=== PATIENT | female | born 1970 | race Caucasian/White ===

== ENCOUNTER 2017-08-03 19:57 | Emergency (ER) | payer OTHER ==
[~2017-08-03] VITALS: Ht 144.7 cm; Wt 88.0 kg
[~2017-08-03 19:57] MED LIST: ALBUTEROL0.09 MG/A2 IH; AMITIZA24 MCG PO; ASPIRIN81 M1 PO; AZO CRANBERRY250 MG PO; B12,B-12,B 12500 MC1 PO; CARAFATE1 G1 PO; CIPRO250 MG PO; CIPRO500 MG PO; DIFLUCAN150 MG PO; FEOSOL325 MG PO; FLAGYL500 MG PO; FLEXERIL10 MG PO; LEVOFLOXACIN500 MG PO; LISINOPRIL10 MG PO; MACROBID100 M1 PO; METOCLOPRAMIDE10 MG PO; PERCOCET 325 MG1 TA2 PO; PHENERGAN25 M1 PO; PRILOSEC20 MG PO; PRILOSEC40 M1 PO; PROBIOTIC250 MG PO; PYRIDIUM200 M1 PO; ROBITUSSIN DM 105 ML PO; VIBRAMYCIN100 MG PO; VISTARIL50 MG PO; ZOFRAN ODT4 MG PO
[2017-08-03 20:05] VITALS: BP 145/80
[2017-08-03 20:24] LABS: BILIRUBIN NEGATIVE (NEGATIVE); BLOOD 2+ (NEGATIVE); CLARITY SL CLOUDY (CLEAR); COLOR YELLOW (YELLOW); GLUCOSE NEGATIVE (NEGATIVE); KETONE NEGATIVE (NEGATIVE); LEUKO ESTERASE 3+ (NEGATIVE); NITRITE NEGATIVE (NEGATIVE); PH 5.5 (5.0-9.0); SPECIFIC GRAVITY <= 1.005 (1.005-1.030); UROBILINOGEN 0.2 E.U./dl (0.2-1.0)
[2017-08-03 20:31] LABS: BACTERIA 2+; EPITHELIAL CELLS 15-20; WBC 51-100 wbc/hpf (0-5)
[2017-08-03 20:36] LABS: BASO % 0.3 % (0.0-1.0); EOS # 0.2 10*3/uL (0.0-0.4); EOS % 1.5 % (1.0-4.0); HEMATOCRIT 42.1 % (37.0-47.0); HEMOGLOBIN 14.1 g/dl (12.0-16.0); LYMPH % 16.3 % (27.0-41.0); MEAN CELL VOLUME 84.4 fl (81.0-99.0); MEAN CORPUSCULAR HGB 28.3 pg (27.0-31.0); MEAN CORPUSCULAR HGB CONC 33.5 g/dl (33.0-37.0); MEAN PLATELET VOLUME 9.2 fl (9.6-12.3); MONO # 0.7 10*3/uL (0.1-1.0); MONO % 5.7 % (3.0-9.0); NEUT # 9.4 10*3/uL (2.3-7.9); NEUT % 75.9 % (47.0-73.0); PLATELET COUNT AUTOMATED 389 10*3/uL (130-400); RED BLOOD COUNT 4.99 10*6/uL (4.10-5.10); RED CELL DISTRI WIDTH 13.4 % (0-14.5); WHITE BLOOD COUNT 12.4 10*3/uL (4.8-10.8)
[2017-08-03 20:52] LABS: ALKALINE PHOSPHATASE 77 U/L (45-117); BUN 9 mg/dl (7-24); CHLORIDE 106 mmol/L (98-107); CREATININE 0.77 mg/dL (0.55-1.02); LIPASE 122 U/L (73-393); POTASSIUM 3.4 mmol/L (3.5-5.1); SGOT/AST 13 IU/L (3-35); SGPT/ALT 21 U/L (12-78); SODIUM 140 mmol/L (136-145); TOTAL PROTEIN 7.9 gm/dL (6.4-8.2)
[2017-08-03] MEDS ORDERED: BACTRIM DS PO (21:01)
== END 2017-08-03 21:10 | disposition home or self-care (01) ==
LOC: ED 19:57
PROVIDERS: Physician Assistant
DX: N30.01 Acute cystitis with hematuria (principal); K76.0 Fatty (change of) liver, not elsewhere classified; Z91.030 Bee allergy status; Z88.5 Allergy status to narcotic agent; Z88.0 Allergy status to penicillin; Z88.8 Allergy status to other drugs, medicaments and biological substances; Z91.018 Allergy to other foods

== ENCOUNTER 2017-08-10 11:02 | Inpatient (IN) | payer OTHER ==
[~2017-08-10] VITALS: Ht 144.7 cm; Wt 85.3 kg
--- NOTE | ~2017-08-10 | CON ---
[place], [place] REPORT OF CONSULTATION NAME: VIDA ROSALES [facility] #: [id number] UNIT #: [id number] ROOM: 503 DOCTOR: NEO SCHULER MDDELOITPRESLEY BIRTHDATE: [birth year] DOS: GASTROENDOSCOPIC REPORT CHIEF COMPLAINT: This is a 46-year-old patient who has presented with left lower quadrant pain as well as subxiphoid atypical chest pain as well as dysphagia to solid food, post-paramedial emesis, undergoing investigation. The patient had a panel of urine studies done, greater than 50,000 moderate E. coli in her urine was identified. Her CBC, white blood cell was 6, H and H of 14 and 43, differential was within normal limits. Platelets, thrombocytosis of 410 was identified, this is reactive, and 2+ positivity in the urine was noticed. Comprehensive metabolic panel including liver function tests, electrolytes, BUN, creatinine all within normal limits. Normal gas pattern was identified on KUB of the abdomen. CT scan of the abdomen and pelvis, no acute process was noticed. Main organs including previously surgically removed gallbladder was noticed, unremarkable pancreas, adrenal gland and spleen were identified. Comprehensive metabolic panel reassessed. Labs reassessed. B12 and folate, B12 242, low and vitamin D low level, folic acid normal was noticed. Urine culture, again E. coli was noticed. Blood cultures were negative. PAST MEDICAL HISTORY: Associated with history of hypertension, gastroesophageal reflux, steatosis of the liver, otherwise obesity, diverticulitis, colonoscopy 5 years ago. PAST SURGICAL HISTORY: Cholecystectomy, tubal ligation, endometrial ablation. SOCIAL HISTORY: Nonsmoker, social alcohol consumer. FAMILY HISTORY: Noncontributory. ALLERGIES: PENICILLIN, CODEINE, BEE STING, TRAMADOL, VICODIN. MEDICATION AT HOME: Reviewed including iron supplementation and omeprazole. REVIEW OF SYSTEMS: HEENT: Denies double vision, blurred vision. RESPIRATORY: Nonspecific shortness of breath. CARDIOVASCULAR: Denies typical chest pain. DIGESTIVE SYSTEM: Symptomatology of GERD and dysphagia. Left lower quadrant pain. PHYSICAL EXAMINATION: VITAL SIGNS: Stable, obese patient. HEENT: Head normocephalic, nontraumatic. Mouth and buccal mucosa benign. NECK: Supple, no thyromegaly. CHEST: Symmetric anatomy, equal expansion. No wheeze, no rhonchi. HEART: Normal sinus rhythm, no gallop, no murmur. ABDOMEN: Obese, soft. No hepato-organomegaly. Left lower quadrant pain that is located in pelvic crest area anatomy. EXTREMITIES: No cyanosis, no pedal edema. [place], [place] REPORT OF CONSULTATION NAME: VIDA ROSALES UNIT #: [id number] ROOM: [facility] DOCTOR: MELY SCHULER MD BIRTHDATE: [birth year] NEUROLOGIC: Alert, oriented to time, place, person. Sensory, motor intact. Cranial nerves 2-12 intact. LABORATORY DATA: Reviewed. Records reviewed. IMPRESSION: Left lower quadrant pain, possible subclinical diverticulitis, urinary tract infection with E. coli less than 50,000, dysphagia, ruling out esophageal stricture, hiatal hernia. OTHER ADJUNCTIVE DIAGNOSES: As outlined in the paragraph of past medical and surgical history. PLAN AND DISCUSSION: We are going to proceed with panendoscopy. Thank you very much indeed. MELY SCHULER MD CM:CONSTR:REPORT OF CONSULTATION 1103 08/16/17 0444 interface
--- NOTE | ~2017-08-10 | O ---
[place], [place] OPERATIVE NOTE NAME: VIDA ROSALES UNIT #: [id number] ROOM: 503 DOCTOR: MELY SCHULER MD BIRTHDATE: [birth year] DOS: GASTRO-ENDOSCOPIC REPORT INDICATION: The patient has presented with dysphagia, epigastric distress and some shortness of breath and left lower quadrant abdominal pain. The patient is investigation for UTI. Meanwhile, she has been suffering from dysphagia. We have been asked for assessment of the patient in this regard. PROCEDURE: Today's procedure part of investigation is panendoscopy, plus biopsy, plus esophageal balloon dilation to size 20. PREMEDICATION: Versed and Diprivan. SCOPE: Olympus forward-viewing gastroscope Q10 video. REPORT: After putting the patient in the left lateral position and after application of lubricant to the scope, the scope was introduced. Thereafter, under direct visualization, I advanced through the length of esophagus without difficulty. Gastric pouch was entered. Antral erosions were noticed. Antral biopsy obtained. Duodenal bulb, second and third part within normal limits. The patient was gradually extubated after GI reflection of the scope and at this stage a balloon size 20 was introduced into the gastric pouch and orally extracted. Highest resistance in cervical esophagus was the place that she is complaining about postprandial emesis periodically. The patient extubated, tolerated the procedure well. IMPRESSION: Upper esophageal stricture, which is benign, status post balloon dilation to size 20, gastritis, antral erosions. PLAN AND DISCUSSION: We are going to keep this patient on Protonix 40 mg daily, dietary modifications, avoiding fatty food in excess and antireflux with elevation of the head of the bed 6 inches all time. Gaviscon as antacid of choice. We will try 2.5 mg metoclopramide prokinetic on her to improve her gastric motility and clinical reassessment. DIFFERENTIAL DIAGNOSES: Hiatal hernia, antral erosions, esophageal stricture, status post balloon dilation, status post antral biopsy. [place], [place] OPERATIVE NOTE NAME: VIDA ROSALES UNIT #: [id number] ROOM: 503 DOCTOR: MELY SCHULER MD BIRTHDATE: [birth year] MELY SCHULER MD CM:OPRECORD:OPERATIVE NOTE [id number] MELY SCHULER MD 08/16/17 0445 interface
[~2017-08-10 11:02] MED LIST changes: +BACTRIM DS PO
[2017-08-10 11:06] VITALS: BP 132/74
[2017-08-10 11:31] LABS: BASO % 0.5 % (0.0-1.0); EOS # 0.1 10*3/uL (0.0-0.4); EOS % 1.8 % (1.0-4.0); HEMATOCRIT 43.2 % (37.0-47.0); HEMOGLOBIN 14.1 g/dl (12.0-16.0); LYMPH # 1.7 10*3/uL (1.3-4.4); LYMPH % 26.9 % (27.0-41.0); MEAN CELL VOLUME 85.2 fl (81.0-99.0); MEAN CORPUSCULAR HGB 27.8 pg (27.0-31.0); MEAN CORPUSCULAR HGB CONC 32.6 g/dl (33.0-37.0); MONO # 0.4 10*3/uL (0.1-1.0); MONO % 5.8 % (3.0-9.0); NEUT # 4.1 10*3/uL (2.3-7.9); NEUT % 64.7 % (47.0-73.0); PLATELET COUNT AUTOMATED 410 10*3/uL (130-400); RED BLOOD COUNT 5.07 10*6/uL (4.10-5.10); RED CELL DISTRI WIDTH 13.2 % (0-14.5); WHITE BLOOD COUNT 6.3 10*3/uL (4.8-10.8)
[2017-08-10 11:43] LABS: BILIRUBIN NEGATIVE (NEGATIVE); BLOOD 2+ (NEGATIVE); CLARITY CLEAR (CLEAR); COLOR YELLOW (YELLOW); GLUCOSE NEGATIVE (NEGATIVE); KETONE NEGATIVE (NEGATIVE); LEUKO ESTERASE 1+ (NEGATIVE); NITRITE NEGATIVE (NEGATIVE); PH 5.5 (5.0-9.0); SPECIFIC GRAVITY 1.025 (1.005-1.030); UROBILINOGEN 0.2 E.U./dl (0.2-1.0)
[2017-08-10 11:52] LABS: BACTERIA TRACE
[2017-08-10 11:53] LABS: ALBUMIN 4.1 gm/dl (3.1-4.5); ALKALINE PHOSPHATASE 68 U/L (45-117); BUN 13 mg/dl (7-24); CHLORIDE 106 mmol/L (98-107); CREATININE 0.98 mg/dL (0.55-1.02); LIPASE 120 U/L (73-393); SGOT/AST 15 IU/L (3-35); SGPT/ALT 23 U/L (12-78); SODIUM 139 mmol/L (136-145); TOTAL PROTEIN 7.9 gm/dL (6.4-8.2)
[2017-08-10 12:00] VITALS: BP 94/50
--- NOTE | 2017-08-10 12:56 | NUR ---
PT GIVEN ICE CHIPS. PT STATES "I DONT LIKE HOW THIS M EDICINE MAKES ME FEEL" PULSE OX 100% ON RA. SKIN PINK WARM , AND DRY. PT STATES SHE FEELS A LITTLE "WOOZY" SIDE RAILS PUT UP AND SPOUSE AT BEDSIDE.
--- NOTE | 2017-08-10 13:33 | NUR ---
PT IS FEELING BETTER. NO NAUSEA OR DIZZINESS.
[2017-08-10 14:00] VITALS: BP 128/76
--- NOTE | 2017-08-10 14:20 | NUR ---
PT AWARE OF ADMITTANCE AND WHY.
[2017-08-10 16:00] VITALS: BP 94/50
--- NOTE | 2017-08-10 16:00 | NUR ---
Time: 1599 A 46 year old FEMALE admitted to 5E under services of VIANEY DANIELSON DO. Pt. arrived via bed from ER. Chief complaint: UTI WITH FAILURE OF OUTPT TREATMENT.. ZHENG SINCLAIR
[2017-08-10 20:00] VITALS: BP 115/40
--- NOTE | 2017-08-10 20:21 | NUR ---
PRN TYLENOL GIVEN FOR LLQ PAIN RATED 7.5/10. WILL MONITOR. C/O INSOMNIA CAUSED BY ABDOMINAL PAIN. STATES NO BOWEL MOVEMENT FOR A WEEK EXCEPT FOR A SMALL AMOUNT IN ER. STATES BOWEL WAS BLACK IN COLOR. C/O PAIN WITH URINATION.
[2017-08-11] VITALS: BP 133/67
--- NOTE | 2017-08-11 01:36 | NUR ---
Complaining of pain on L side with inability to lie on that side. Voices complaints of pain and burning with urination. States only wants Tylenol or Ibuprophen for pain. Requested and medicated with Restoril at 0029 for complaints of insomnia. Will monitor effectiveness.
--- NOTE | 2017-08-11 02:52 | NUR ---
Restoril effective, resting quietly in bed with eyes closed. Resp easy and regular. Will continue to monitor.
[2017-08-11 04:00] VITALS: BP 109/43
[2017-08-11 06:07] LABS: BASO % 0.5 % (0.0-1.0); EOS # 0.2 10*3/uL (0.0-0.4); HEMATOCRIT 37.5 % (37.0-47.0); HEMOGLOBIN 12.5 g/dl (12.0-16.0); LYMPH # 2.1 10*3/uL (1.3-4.4); LYMPH % 33.6 % (27.0-41.0); MEAN CELL VOLUME 86.8 fl (81.0-99.0); MEAN CORPUSCULAR HGB 28.9 pg (27.0-31.0); MEAN CORPUSCULAR HGB CONC 33.3 g/dl (33.0-37.0); MEAN PLATELET VOLUME 8.9 fl (9.6-12.3); MONO # 0.4 10*3/uL (0.1-1.0); MONO % 6.9 % (3.0-9.0); NEUT # 3.5 10*3/uL (2.3-7.9); NEUT % 55.5 % (47.0-73.0); PLATELET COUNT AUTOMATED 312 10*3/uL (130-400); RED BLOOD COUNT 4.32 10*6/uL (4.10-5.10); RED CELL DISTRI WIDTH 13.2 % (0-14.5); WHITE BLOOD COUNT 6.4 10*3/uL (4.8-10.8)
[2017-08-11 06:38] LABS: ALBUMIN 3.4 gm/dl (3.1-4.5); ALKALINE PHOSPHATASE 54 U/L (45-117); BUN 8 mg/dl (7-24); CHLORIDE 108 mmol/L (98-107); CHOLESTEROL 177 mg/dL (<200); CREATININE 0.82 mg/dL (0.55-1.02); HDL CHOLESTEROL 41 mg/dl (40-60); LDL CHOLESTEROL 104 mg/dL (9-159); PHOSPHOROUS 2.9 mg/dL (2.5-4.9); POTASSIUM 3.5 mmol/L (3.5-5.1); SGOT/AST 9 IU/L (3-35); SGPT/ALT 18 U/L (12-78); SODIUM 140 mmol/L (136-145); TOTAL PROTEIN 6.4 gm/dL (6.4-8.2); TRIGLYCERIDES 158 mg/dl (<150); VLDL CHOLESTEROL 32 mg/dL (6-40)
[2017-08-11 07:41] LABS: VITAMIN D, 25-HYDROXY 19.5 ng/mL (30-100)
[2017-08-11 08:00] VITALS: BP 109/60
--- NOTE | 2017-08-11 08:03 | NUR ---
Requested and medicated with Dulcolax at 0639 for complaints of constipation, states no bowelmovement for 1 week. Requested and medicated with Tylenol for complaints of L sided pain rated an 8/10. Will continue to monitor.
--- NOTE | 2017-08-11 08:30 | NUR ---
Oxygen Plant Operator in to talk to patient. Patient states lives at HOME with HER . There are ALOT steps in the home. Physician: [facility] Pharmacy: [facility] Home health services: NONE Patient's level of ADLs: INDEPENDENT Patient has working utilities: YES DME: NONE Follow-up physician's appointment after d/c: WILL BE MADE PRIOR TO DC Does patient want to access PORTAL?: Discharge plan HOME. PAULA BRUCE
--- NOTE | 2017-08-11 09:48 | NUR ---
MEDICATED WITH ZOFRAN FOR C/O NAUSEA. WILL CONT TO MONITOR. CALL LIGHT IN REACH.
--- NOTE | 2017-08-11 10:48 | NUR ---
DANAE DE JESUS AT THIS TIME. WILL CONT TO MONITOR. CALL LIGHT IN REACH.
[2017-08-11 12:00] VITALS: BP 109/43
[2017-08-11 16:00] VITALS: BP 110/63
--- NOTE | 2017-08-11 18:44 | NUR ---
ZOFRAN GIVEN FOR VOMITING. SHE STATES SHE ATE SOLID FOOD AND EVERYTIME SHE DOES THAT SHE HAS AN EMESIS.
--- NOTE | 2017-08-11 18:53 | NUR ---
DR MUÑOZ NOTIFIED THAT PT STATED TO ME SHE HASN'T EATEN SOLID FOOD SINCE 07/25/17 BECAUSE SHE THROWS IT BACK UP. SHE STATES SHE HAS BEEN EATING CRACKERS AND LIQUIDS SINCE THEN. HE STATED HE WILL MAKE HER NPO AT MIDNIGHT AND WILL TALK TO THE TEAM ABOUT GETTING DR SCHULER ON BOARD TOMORROW FOR AN EGD.
--- NOTE | 2017-08-11 19:04 | NUR ---
PHYSICIAN WAS NOTIFIED OF DR. SCHULER CONSULT. RESPONSE OF NOTIFICATION WAS OK EGD TOMORROW, NPO AT MIDNIGHT, HOLD BLOOD THINNERS.. LEONID MARLEY
[2017-08-11 20:00] VITALS: BP 122/76
--- NOTE | 2017-08-11 22:08 | NUR ---
PATIENT MEDICATED WITH RESTORIL FOR COMPLAINTS OF INSOMNIA. WILL MONITOR FOR EFFECTIVENESS. CALL LIGHT IN REACH.
--- NOTE | 2017-08-11 22:14 | NUR ---
MEDICATED WITH TYLENOL FOR COMPLAINTS OF ABDOMINAL PAIN. WILL MONITOR FOR EFFECTIVENESS. CALL LIGHT IN REACH.
--- NOTE | 2017-08-11 23:31 | NUR ---
PRN RESTORIL AND TYLENOL EFFECTIVE AT THIS TIME. PATIENT RESTING IN BED WITH EYES CLOSED. NO SIGNS OR SYMPTOMS OF DISTRESS NOTED. WILL CONTINUE TO MONITOR. CALL LIGHT IN REACH.
[2017-08-12] VITALS (9 sets, daily range): BP systolic 96–138; BP diastolic 33–76
--- NOTE | 2017-08-12 05:53 | NUR ---
SURGICAL PACKET COMPLETED.
--- NOTE | 2017-08-12 07:45 | NUR ---
Shift chart check completed.
--- NOTE | 2017-08-12 09:00 | NUR ---
PT TO EGD VIA BED
--- NOTE | 2017-08-12 11:55 | NUR ---
RETURNED FROM EGD. PT STATES IV IN LEFT HAND "HURTING" NO INFILTRATION NOTED. PER PATIENT REQUEST WILL PLACE NEW IV AND REMOVE IV IN LEFT HAND
--- NOTE | 2017-08-12 12:14 | NUR ---
NEW IV PLACED IN LEFT AC #22. GOOD BLOOD RETURN, FLUSHED WITH NS. PT TOLERATED WELL. IV FLUIDS HOOKED BACK UP. IV IN LEFT HAND D/C- DRESSING APPLIED.
--- NOTE | 2017-08-12 12:14 | NUR ---
NEW IV STARTED IN LRGT AC #22 GOOD BLOOD RETURN, PT TOLERATED WELL. IV IN LEFT HAND D/C. UNSUCCESSFUL ATTEMPTS X1 IN RIGHT AC.
--- NOTE | 2017-08-12 12:17 | NUR ---
PT SLEEPING. IVFLUIDS STOPPED PER ORDER
--- NOTE | 2017-08-12 16:05 | NUR ---
Time: 1604 A 73 year old admitted to 5E under services of VIANEY DANIELSON DO. Pt. arrived via stretcher from ER. Chief complaint: SHORTNESS OF BREATH. JENN MARTINES
--- NOTE | 2017-08-12 18:12 | NUR ---
IV STARTED IN LEFT FA. TOLERATED WELL. GOOD BLOOD RETURN. RESPIRATORY AWARE OF ABG NEEDED - THEY STATED SHE JUST HAD A BREATHING TREATMENT SO THEY HAVE TO WAIT A FEW PRIOR TO DRAWING ABG.
--- NOTE | 2017-08-12 20:15 | NUR ---
PT C/O NAUSEA. ZOFRAN ADMINISTERED VIA IV AT THIS TIME. WILL MONITOR FOR EFFECTIVENESS. PT SITTING UP IN CHAIR, ASSESSMENT COMPLETE. NO OTHER ABNORMALITIES NOTED AT THIS TIME. ACTIVE BSX4. IV SITE PATENT, DRESSING DRY AND IN TACT. CALL LIGHT IN REACH.
--- NOTE | 2017-08-12 21:15 | NUR ---
DANAE EFFECTIVE. PT STATES SHE HAS NO NAUSEA AT THIS TIME. PT SITTING UP IN CHAIR AT THIS TIME. CALL LIGHT IN REACH.
--- NOTE | 2017-08-12 21:23 | NUR ---
24 HR chart check completed.
--- NOTE | 2017-08-12 21:51 | NUR ---
PT GIVEN TYLENOL AND RESTORIL FOR FLANK PAIN AND RESTLESSNESS. WILL MONITOR FOR EFFECTIVENESS. CALL LIGHT IN REACH.
--- NOTE | 2017-08-12 22:50 | NUR ---
TYLENOL AND VISTARIL EFFECTIVE PER PT. PT RESTING IN BED AT THIS TIME. CALL LIGHT IN REACH.
[2017-08-13] VITALS: BP 122/75
--- NOTE | 2017-08-13 02:25 | NUR ---
24 HOUR CHART CHECK COMPLETE
[2017-08-13 06:07] LABS: BASO % 0.4 % (0.0-1.0); EOS # 0.2 10*3/uL (0.0-0.4); EOS % 3.4 % (1.0-4.0); HEMATOCRIT 36.5 % (37.0-47.0); HEMOGLOBIN 11.8 g/dl (12.0-16.0); LYMPH # 2.3 10*3/uL (1.3-4.4); MEAN CELL VOLUME 86.3 fl (81.0-99.0); MEAN CORPUSCULAR HGB 27.9 pg (27.0-31.0); MEAN CORPUSCULAR HGB CONC 32.3 g/dl (33.0-37.0); MEAN PLATELET VOLUME 9.3 fl (9.6-12.3); MONO # 0.4 10*3/uL (0.1-1.0); MONO % 6.3 % (3.0-9.0); NEUT # 3.9 10*3/uL (2.3-7.9); NEUT % 56.6 % (47.0-73.0); PLATELET COUNT AUTOMATED 343 10*3/uL (130-400); RED BLOOD COUNT 4.23 10*6/uL (4.10-5.10); RED CELL DISTRI WIDTH 13.4 % (0-14.5); WHITE BLOOD COUNT 6.8 10*3/uL (4.8-10.8)
[2017-08-13 06:33] LABS: BUN 6 mg/dl (7-24); CHLORIDE 107 mmol/L (98-107); CREATININE 0.73 mg/dL (0.55-1.02); POTASSIUM 3.4 mmol/L (3.5-5.1); SODIUM 143 mmol/L (136-145)
[2017-08-13 08:00] VITALS: BP 109/56
[2017-08-13] MEDS ORDERED: Lioresal PO (11:37)
[2017-08-13] MEDS ORDERED: MACROBID100 M1 PO (11:37)
--- NOTE | 2017-08-13 12:41 | NUR ---
Discharge instructions reviewed with patient/family. Patient receptive and verbalizes understanding. Follow-up care arranged. Written instructions given to patient/family.HEPLOCK REMOVED. ALEXANDRIA VINCENT
== END 2017-08-13 12:41 | disposition home or self-care (01) | DRG 690 ==
LOC: EDSTATUS 11:02 → ED 11:03 → 5E 14:22 → EDHOLD 14:22 → 5E 14:27
PROVIDERS: Family Medicine; Internal Medicine; Physician Assistant; ADMIT Internal Medicine
PROC: 0DB68ZX Excision of Stomach, Via Natural or Artificial Opening Endoscopic, Diagnostic (ICD-10-PCS; principal; 2017-08-10)
PROC: 0D758ZZ Dilation of Esophagus, Via Natural or Artificial Opening Endoscopic (ICD-10-PCS; principal; 2017-08-10)
DX: N39.0 Urinary tract infection, site not specified (principal); K22.2 Esophageal obstruction; K57.92 Diverticulitis of intestine, part unspecified, without perforation or abscess without bleeding; B96.20 Unspecified Escherichia coli [E. coli] as the cause of diseases classified elsewhere; I10 Essential (primary) hypertension; K21.9 Gastro-esophageal reflux disease without esophagitis; K25.9 Gastric ulcer, unspecified as acute or chronic, without hemorrhage or perforation; K44.9 Diaphragmatic hernia without obstruction or gangrene; Z78.9 Other specified health status; R31.9 Hematuria, unspecified; K29.70 Gastritis, unspecified, without bleeding; Z98.51 Tubal ligation status; Z90.49 Acquired absence of other specified parts of digestive tract; Z82.49 Family history of ischemic heart disease and other diseases of the circulatory system; Z88.0 Allergy status to penicillin; Z88.6 Allergy status to analgesic agent; Z91.030 Bee allergy status; Z79.899 Other long term (current) drug therapy

== ENCOUNTER → 2017-08-17 | Outpatient (CLI) | payer OTHER ==
[~2017-08-17] MED LIST changes: +Lioresal PO
== END | disposition home or self-care (01) ==
LOC: RESCLI 07:51
DX: K59.00 Constipation, unspecified (principal); R30.0 Dysuria; E61.1 Iron deficiency; M25.512 Pain in left shoulder; K21.9 Gastro-esophageal reflux disease without esophagitis; K29.50 Unspecified chronic gastritis without bleeding; E53.8 Deficiency of other specified B group vitamins; E55.9 Vitamin D deficiency, unspecified; E66.01 Morbid (severe) obesity due to excess calories; Z88.0 Allergy status to penicillin; Z88.5 Allergy status to narcotic agent; Z88.1 Allergy status to other antibiotic agents; Z91.030 Bee allergy status

== ENCOUNTER → 2017-11-08 | Outpatient (CLI) | payer OTHER ==
[2017-11-08 15:29] LABS: BILIRUBIN NEGATIVE (NEGATIVE); BLOOD TRACE-INTACT (NEGATIVE); CLARITY CLEAR (CLEAR); COLOR YELLOW (YELLOW); GLUCOSE NEGATIVE (NEGATIVE); KETONE NEGATIVE (NEGATIVE); LEUKO ESTERASE NEGATIVE (NEGATIVE); NITRITE NEGATIVE (NEGATIVE); SPECIFIC GRAVITY <= 1.005 (1.005-1.030); UROBILINOGEN 0.2 E.U./dl (0.2-1.0)
[2017-11-08 15:47] LABS: WBC 0-2 wbc/hpf (0-5)
== END | disposition home or self-care (01) ==
LOC: RESCLI 04:02
PROVIDERS: Internal Medicine
DX: N39.0 Urinary tract infection, site not specified (principal)

== ENCOUNTER 2018-01-01 14:20 | Emergency (ER) | payer OTHER ==
[~2018-01-01] VITALS: Ht 144.7 cm; Wt 88.9 kg
[2018-01-01 14:25] VITALS: BP 146/85
[2018-01-01 14:57] LABS: BASO % 0.4 % (0.0-1.0); EOS % 1.1 % (1.0-4.0); HEMATOCRIT 42.3 % (37.0-47.0); HEMOGLOBIN 14.1 g/dl (12.0-16.0); LYMPH # 1.2 10*3/uL (1.3-4.4); LYMPH % 43.8 % (27.0-41.0); MEAN CELL VOLUME 84.8 fl (81.0-99.0); MEAN CORPUSCULAR HGB 28.3 pg (27.0-31.0); MEAN CORPUSCULAR HGB CONC 33.3 g/dl (33.0-37.0); MEAN PLATELET VOLUME 8.6 fl (9.6-12.3); MONO # 0.4 10*3/uL (0.1-1.0); MONO % 12.8 % (3.0-9.0); NEUT # 1.2 10*3/uL (2.3-7.9); NEUT % 41.5 % (47.0-73.0); PLATELET COUNT AUTOMATED 261 10*3/uL (130-400); RED BLOOD COUNT 4.99 10*6/uL (4.10-5.10); RED CELL DISTRI WIDTH 13.6 % (0-14.5); WHITE BLOOD COUNT 2.8 10*3/uL (4.8-10.8)
[2018-01-01 15:11] LABS: ALBUMIN 3.6 gm/dl (3.1-4.5); ALKALINE PHOSPHATASE 78 U/L (45-117); BUN 5 mg/dl (7-24); CHLORIDE 105 mmol/L (98-107); SGOT/AST 23 IU/L (3-35); SGPT/ALT 30 U/L (12-78); SODIUM 140 mmol/L (136-145); TOTAL PROTEIN 6.9 gm/dL (6.4-8.2)
[2018-01-01 16:25] LABS: BILIRUBIN NEGATIVE (NEGATIVE); BLOOD TRACE-INTACT (NEGATIVE); CLARITY SL CLOUDY (CLEAR); COLOR YELLOW (YELLOW); GLUCOSE NEGATIVE (NEGATIVE); KETONE NEGATIVE (NEGATIVE); LEUKO ESTERASE NEGATIVE (NEGATIVE); NITRITE NEGATIVE (NEGATIVE); SPECIFIC GRAVITY >= 1.030 (1.005-1.030); UROBILINOGEN 0.2 E.U./dl (0.2-1.0)
[2018-01-01 16:33] LABS: BACTERIA 1+; EPITHELIAL CELLS 51-100
[2018-01-01] MEDS ORDERED: K-TAB20 MEQ PO (17:36)
[2018-01-01] MEDS ORDERED: ZOFRAN ODT4 MG SL (17:36)
[2018-01-01] MEDS ORDERED: LEVAQUIN750 M1 PO (17:36)
== END 2018-01-01 17:39 | disposition home or self-care (01) ==
LOC: ED 14:20
PROVIDERS: Physician Assistant
DX: B34.9 Viral infection, unspecified (principal); N39.0 Urinary tract infection, site not specified; Z90.49 Acquired absence of other specified parts of digestive tract; Z88.5 Allergy status to narcotic agent; Z88.0 Allergy status to penicillin; Z91.030 Bee allergy status

== ENCOUNTER → 2018-02-14 | Outpatient (CLI) | payer OTHER ==
[~2018-02-14] MED LIST changes: +K-TAB20 MEQ PO; +LEVAQUIN750 M1 PO; +ZOFRAN ODT4 MG SL
== END | disposition home or self-care (01) ==
LOC: RESCLI 01:48
DX: K21.9 Gastro-esophageal reflux disease without esophagitis (principal); B37.3 Candidiasis of vulva and vagina; R30.0 Dysuria; N94.10 Unspecified dyspareunia; G43.019 Migraine without aura, intractable, without status migrainosus; F41.9 Anxiety disorder, unspecified; G47.00 Insomnia, unspecified; R04.0 Epistaxis; K59.00 Constipation, unspecified; E53.8 Deficiency of other specified B group vitamins; E55.9 Vitamin D deficiency, unspecified; E66.1 Drug-induced obesity; I10 Essential (primary) hypertension; Z90.49 Acquired absence of other specified parts of digestive tract

== ENCOUNTER → 2018-04-19 | Day surgery (SDC) | payer OTHER ==
[~2018-04-19] VITALS: Ht 144.7 cm; Wt 85.7 kg
[~2018-04-19] MED LIST changes: +AMITIZA8 MCG PO; +CYCLOBENZAPRINE10 MG PO
--- NOTE | ~2018-04-19 | O ---
[place], [place] OPERATIVE NOTE NAME: VIDA ROSALES UNIT #: [id number] [facility]: [facility] [birth year] DOS: 04/19/2018 GASTROENDOSCOPIC REPORT INDICATIONS: This is a 47-year-old patient who has presented with chief complaint of dyspepsia as well pain. The patient has been on Prilosec as well as constipation and abdominal pain, been on Amitiza as well. The patient has had CT scan that is pending. ALLERGIES: PENICILLIN, CODEINE, AND IODINE. FAMILY HISTORY: Noncontributory. PAST SURGICAL HISTORY: Tubal ligation, , cholecystectomy. PAST MEDICAL HISTORY: Abdominal pain, migraine cephalalgia, UTI, GERD. SOCIAL HISTORY: Nonsmoker, social alcohol consumer. PROCEDURE: Today's procedure part of investigation is panendoscopy and colonoscopy. PREMEDICATION: Versed and propofol. SCOPE: Olympus forward-viewing gastroscope Q10 video. REPORT: After putting the patient in left lateral position and application of lubricant to the scope, the scope was introduced. Thereafter, under direct visualization, advanced through the length of esophagus without difficulty. Gastric pouch was entered. Evidence of gastritis was seen. Antral biopsy obtained for H. pylori. Duodenal bulb, second and third part within normal limit. The scope was withdrawn along the lesser curvature. Air was suctioned out. The patient was extubated, tolerated the procedure well. IMPRESSION: Gastritis. PLAN AND DISCUSSION: We are going to continue with Prilosec and antireflux with elevation of the head of the bed 6 inch all time. Gaviscon p.r.n. Furthermore, we are going to proceed with colonoscopic evaluation for constipation ____ as well as abdominal pain. COLONOSCOPY INDICATIONS: The patient has presented with abdominal pain, and change of bowel habit. Today's procedure part of investigation is colonoscopy. PREMEDICATION: Propofol. [place], [place] OPERATIVE NOTE NAME: VIDA ROSALES UNIT #: [id number] ROOM: [facility] [birth year] SCOPE: Olympus folding colonoscope 10L video. REPORT: After putting the patient in left lateral position and application of lubricant to the scope, the scope was introduced. Thereafter, under direct visualization, advanced through the length of colon without difficulty. Evidence of diverticulosis of moderate degree was noticed. Base of cecum explored and ileocecal valve was defined. Appendiceal orifice was hidden in layers of retained stool. Air was suctioned out. The patient was extubated, tolerated the procedure well. IMPRESSION: Diverticulosis. PLAN AND DISCUSSION: Since Amitiza 24 mcg induced, diarrhea, multiple stool. We are continuing with Amitiza 8 mcg instead once a day. High fiber diet, low fat diet, and follow up routinely with you in office, visit with us p.r.n. CT scan result is pending. Thank you very much indeed for your kind referral. MELY SCHULER MD CM:OPRECORD:OPERATIVE NOTE 1201 [id number] MELY SCHULER MD 04/19/18 1355 interface
[2018-04-19 11:00] VITALS: BP 109/70
[2018-04-19 11:57] VITALS: BP 102/58
[2018-04-19 12:12] VITALS: BP 106/57
[2018-04-19 12:26] VITALS: BP 104/54
== END | disposition home or self-care (01) ==
LOC: SDC 04-13 12:30
DX: K57.30 Diverticulosis of large intestine without perforation or abscess without bleeding (principal); K29.50 Unspecified chronic gastritis without bleeding; G43.909 Migraine, unspecified, not intractable, without status migrainosus; K21.9 Gastro-esophageal reflux disease without esophagitis; J45.909 Unspecified asthma, uncomplicated; Z87.440 Personal history of urinary (tract) infections; Z90.49 Acquired absence of other specified parts of digestive tract; Z98.890 Other specified postprocedural states; Z98.51 Tubal ligation status; Z79.899 Other long term (current) drug therapy; Z88.0 Allergy status to penicillin; Z91.041 Radiographic dye allergy status; Z88.8 Allergy status to other drugs, medicaments and biological substances; Z80.9 Family history of malignant neoplasm, unspecified; Z82.49 Family history of ischemic heart disease and other diseases of the circulatory system

== ENCOUNTER → 2018-04-19 | Outpatient (CLI) | payer OTHER ==
[2018-04-19 10:10] LABS: ALBUMIN 3.9 gm/dl (3.1-4.5); ALKALINE PHOSPHATASE 69 U/L (45-117); BUN 12 mg/dl (7-24); CHLORIDE 105 mmol/L (98-107); CREATININE 0.88 mg/dL (0.55-1.02); POTASSIUM 3.6 mmol/L (3.5-5.1); SGOT/AST 17 IU/L (3-35); SGPT/ALT 27 U/L (12-78); SODIUM 140 mmol/L (136-145); TOTAL PROTEIN 7.2 gm/dL (6.4-8.2)
[2018-04-19 10:20] LABS: BASO % 0.6 % (0.0-1.0); EOS # 0.1 10*3/uL (0.0-0.4); EOS % 1.3 % (1.0-4.0); HEMATOCRIT 43.3 % (37.0-47.0); HEMOGLOBIN 13.9 g/dl (12.0-16.0); LYMPH # 1.7 10*3/uL (1.3-4.4); LYMPH % 25.3 % (27.0-41.0); MEAN CELL VOLUME 86.8 fl (81.0-99.0); MEAN CORPUSCULAR HGB 27.9 pg (27.0-31.0); MEAN CORPUSCULAR HGB CONC 32.1 g/dl (33.0-37.0); MEAN PLATELET VOLUME 8.9 fl (9.6-12.3); MONO # 0.4 10*3/uL (0.1-1.0); MONO % 6.2 % (3.0-9.0); NEUT # 4.5 10*3/uL (2.3-7.9); NEUT % 66.3 % (47.0-73.0); PLATELET COUNT AUTOMATED 406 10*3/uL (130-400); RED BLOOD COUNT 4.99 10*6/uL (4.10-5.10); RED CELL DISTRI WIDTH 13.2 % (0-14.5); WHITE BLOOD COUNT 6.8 10*3/uL (4.8-10.8)
[2018-04-19 10:32] LABS: ACT PARTIAL THROMBO TIME 25.1 SECONDS (20.8-31.5)
[2018-04-19 10:55] LABS: VITAMIN D, 25-HYDROXY 20.4 ng/mL (30-100)
== END | disposition home or self-care (01) ==
LOC: LAB 09:14
PROVIDERS: Internal Medicine
DX: Z00.00 Encounter for general adult medical examination without abnormal findings (principal)

== ENCOUNTER → 2018-09-18 | Outpatient (CLI) | payer OTHER | END | disposition home or self-care (01) | LOC: RAD 09-15 10:00 | DX: R13.10 Dysphagia, unspecified (principal); R22.1 Localized swelling, mass and lump, neck; K21.9 Gastro-esophageal reflux disease without esophagitis ==

== ENCOUNTER 2018-12-25 18:07 | Emergency (ER) | payer OTHER ==
[~2018-12-25] VITALS: Ht 144.7 cm; Wt 89.8 kg
[2018-12-25 18:08] VITALS: BP 129/64
== END 2018-12-25 21:02 | disposition home or self-care (01) ==
LOC: ED 18:07
DX: S60.022A Contusion of left index finger without damage to nail, initial encounter (principal); S60.032A Contusion of left middle finger without damage to nail, initial encounter; K21.9 Gastro-esophageal reflux disease without esophagitis; I10 Essential (primary) hypertension; Z79.899 Other long term (current) drug therapy; Z88.0 Allergy status to penicillin; Z91.030 Bee allergy status; Z88.6 Allergy status to analgesic agent; W22.03XA Walked into furniture, initial encounter; Y93.89 Activity, other specified; Y92.89 Other specified places as the place of occurrence of the external cause; Y99.8 Other external cause status

== ENCOUNTER → 2019-01-02 | Outpatient (CLI) | payer OTHER | END | disposition home or self-care (01) | LOC: MAMMO 14:25 | DX: Z12.31 Encounter for screening mammogram for malignant neoplasm of breast (principal) ==

== ENCOUNTER → 2019-02-14 | Outpatient (CLI) | payer OTHER ==
[2019-02-15 17:06] LABS: RUBEOLA AB IGG 096560 26.3 AU/mL (Immune >29.9)
== END | disposition home or self-care (01) ==
LOC: RESCLI 01:13
PROVIDERS: Student in an Organized Health Care Education/Training Program
DX: Z12.4 Encounter for screening for malignant neoplasm of cervix (principal); Z12.31 Encounter for screening mammogram for malignant neoplasm of breast; Z11.1 Encounter for screening for respiratory tuberculosis; Z02.89 Encounter for other administrative examinations; K21.9 Gastro-esophageal reflux disease without esophagitis; E55.9 Vitamin D deficiency, unspecified; E61.1 Iron deficiency; F41.9 Anxiety disorder, unspecified; E66.01 Morbid (severe) obesity due to excess calories; I10 Essential (primary) hypertension; Z87.19 Personal history of other diseases of the digestive system

== ENCOUNTER 2019-06-25 09:02 | Emergency (ER) | payer OTHER ==
[~2019-06-25] VITALS: Ht 144.7 cm; Wt 89.4 kg
[2019-06-25 09:03] VITALS: BP 106/59
== END 2019-06-25 12:10 | disposition home or self-care (01) ==
LOC: ED 09:02
DX: G43.909 Migraine, unspecified, not intractable, without status migrainosus (principal); Z88.0 Allergy status to penicillin; Z88.6 Allergy status to analgesic agent; Z79.899 Other long term (current) drug therapy; Z91.030 Bee allergy status

== ENCOUNTER 2019-08-31 20:56 | Inpatient (IN) | payer OTHER ==
[~2019-08-31] VITALS: Ht 149.9 cm; Wt 88.0 kg
--- NOTE | ~2019-08-31 | EKG ---
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
--- NOTE | ~2019-08-31 | EKG ---
[place], [place] ELECTROCARDIOGRAM REPORT NAME: VIDA ROSALES UNIT #: [id number] ROOM: 424 DOCTOR: MYCHAL DRAFT REPORT BIRTHDATE: [birth year] [facility] Test Date: 2019-09-01 Test Time: 04:26:10 Pat Name: VIDA ROSALES Department: Room: 424 1 Gender: F Trackmobile Operator: : 1970 Requested By: JACQUE MUÑOZ Order Number: [id number] Reading MD: Maude Pike Measurements Intervals [place] Rate: 95 P: 64 MS: 120 QRS: 32 QRSD: 75 T: 32 QT: 355 QTc: 447 Interpretive Statements Sinus rhythm Borderline T abnormalities, anterior leads Electronically Signed On 09-01-2019 11:34:55 PST by Maude Pike CM:EKGRPT:ELECTROCARDIOGRAM REPORT 0426 [id number] JACQUE JARRETT DRAFT REPORT JACQUE MUÑOZ DO
--- NOTE | ~2019-08-31 | EKG ---
[place], [place] ELECTROCARDIOGRAM REPORT NAME: VIDA ROSALES UNIT #: [id number] ROOM: 424 DOCTOR: MYCHAL DRAFT REPORT BIRTHDATE: [birth year] [facility] Test Date: 2019-09-01 Test Time: 02:06:58 Pat Name: VIDA ROSALES Department: Room: 424 1 Gender: F Netting Weaver: : 1970 Requested By: JACQUE MUÑOZ Order Number: [id number] Reading MD: Maude Pike Measurements Intervals [place] Rate: 109 P: 47 VA: 124 QRS: 15 QRSD: 79 T: 25 QT: 323 QTc: 436 Interpretive Statements Sinus tachycardia Borderline T abnormalities, anterior leads Electronically Signed On 09-01-2019 11:34:46 PST by Maude Pike CM:EKGRPT:ELECTROCARDIOGRAM REPORT 0206 [id number] JACQUE JARRETT DRAFT REPORT JACQUE MUÑOZ DO
[2019-08-31 21:02] VITALS: BP 133/71
[2019-08-31] MEDS ORDERED: DITROPAN XL5 MG PO (21:06)
[2019-08-31 21:34] VITALS: BP 155/74
[2019-08-31 21:34] LABS: HEMOGLOBIN 13.2 g/dl (12.0-16.0); MEAN CELL VOLUME 86.8 fl (81.0-99.0); MEAN CORPUSCULAR HGB 28.6 pg (27.0-31.0); MEAN PLATELET VOLUME 8.6 fl (9.6-12.3); PLATELET COUNT AUTOMATED 329 10*3/uL (130-400); RED BLOOD COUNT 4.61 10*6/uL (4.10-5.10); RED CELL DISTRI WIDTH 13.8 % (0-14.5); WHITE BLOOD COUNT 8.1 10*3/uL (4.8-10.8)
[2019-08-31 21:44] LABS: INTERNATIONAL NORM RATIO 0.9 (2.0-3.5)
[2019-08-31 21:45] LABS: BILIRUBIN NEGATIVE (NEGATIVE); BLOOD 2+ (NEGATIVE); CLARITY CLOUDY (CLEAR); COLOR YELLOW (YELLOW); GLUCOSE NEGATIVE (NEGATIVE); KETONE NEGATIVE (NEGATIVE); LEUKO ESTERASE 3+ (NEGATIVE); NITRITE NEGATIVE (NEGATIVE); SPECIFIC GRAVITY 1.015 (1.005-1.030); UROBILINOGEN 0.2 E.U./dl (0.2-1.0)
[2019-08-31 21:52] LABS: ALBUMIN 3.3 gm/dl (3.1-4.5); ALKALINE PHOSPHATASE 83 U/L (45-117); BUN 9 mg/dl (7-24); CHLORIDE 107 mmol/L (98-107); CREATININE 0.88 mg/dL (0.55-1.02); LIPASE 77 U/L (73-393); POTASSIUM 3.5 mmol/L (3.5-5.1); SGOT/AST 23 IU/L (3-35); SGPT/ALT 39 U/L (12-78); SODIUM 139 mmol/L (136-145); TOTAL PROTEIN 6.9 gm/dL (6.4-8.2)
[2019-08-31 21:53] LABS: TROPONIN I < 0.015 ng/ml (<0.045)
[2019-08-31 21:55] LABS: TOTAL CELLS COUNTED 100 #CELLS
[2019-08-31 21:56] LABS: PLATELET SUFFICIENCY NORMAL (NORMAL)
[2019-08-31 21:57] LABS: POLYCHROMASIA SLIGHT
[2019-08-31 22:04] LABS: BACTERIA 2+; WBC TNTC wbc/hpf (0-5)
[2019-08-31 22:23] VITALS: BP 142/70
[2019-09-01] VITALS (7 sets, daily range): BP systolic 107–147; BP diastolic 57–76
[2019-09-02] VITALS: BP 92/43
[2019-09-02 06:39] LABS: BASO % 0.5 % (0.0-1.0); EOS # 0.4 10*3/uL (0.0-0.4); EOS % 4.5 % (1.0-4.0); HEMATOCRIT 34.6 % (37.0-47.0); HEMOGLOBIN 11.2 g/dl (12.0-16.0); LYMPH # 1.4 10*3/uL (1.3-4.4); LYMPH % 18.1 % (27.0-41.0); MEAN CELL VOLUME 86.9 fl (81.0-99.0); MEAN CORPUSCULAR HGB 28.1 pg (27.0-31.0); MEAN CORPUSCULAR HGB CONC 32.4 g/dl (33.0-37.0); MEAN PLATELET VOLUME 8.8 fl (9.6-12.3); MONO # 0.6 10*3/uL (0.1-1.0); MONO % 8.3 % (3.0-9.0); NEUT # 5.3 10*3/uL (2.3-7.9); NEUT % 68.1 % (47.0-73.0); PLATELET COUNT AUTOMATED 290 10*3/uL (130-400); RED BLOOD COUNT 3.98 10*6/uL (4.10-5.10); RED CELL DISTRI WIDTH 13.8 % (0-14.5); WHITE BLOOD COUNT 7.8 10*3/uL (4.8-10.8)
[2019-09-02 06:56] LABS: BUN 8 mg/dl (7-24); CHLORIDE 109 mmol/L (98-107); CHOLESTEROL 174 mg/dL (<200); CREATININE 0.73 mg/dL (0.55-1.02); HDL CHOLESTEROL 39 mg/dl (40-60); LDL CHOLESTEROL 109 mg/dL (9-159); POTASSIUM 3.9 mmol/L (3.5-5.1); SODIUM 140 mmol/L (136-145); TRIGLYCERIDES 128 mg/dl (<150); VLDL CHOLESTEROL 26 mg/dL (6-40)
[2019-09-02 07:57] LABS: VITAMIN D, 25-HYDROXY 32.5 ng/mL (30-100)
[2019-09-02 08:00] VITALS: BP 125/70
[2019-09-02 12:00] VITALS: BP 112/51
[2019-09-02 16:00] VITALS: BP 131/70
[2019-09-02 20:00] VITALS: BP 117/69
[2019-09-03 06:46] LABS: BASO % 0.5 % (0.0-1.0); EOS # 0.4 10*3/uL (0.0-0.4); EOS % 5.4 % (1.0-4.0); HEMATOCRIT 37.5 % (37.0-47.0); LYMPH # 1.5 10*3/uL (1.3-4.4); LYMPH % 19.4 % (27.0-41.0); MEAN CELL VOLUME 87.2 fl (81.0-99.0); MEAN CORPUSCULAR HGB 27.9 pg (27.0-31.0); MEAN PLATELET VOLUME 8.8 fl (9.6-12.3); MONO # 0.7 10*3/uL (0.1-1.0); MONO % 9.1 % (3.0-9.0); NEUT # 5.1 10*3/uL (2.3-7.9); NEUT % 64.8 % (47.0-73.0); PLATELET COUNT AUTOMATED 329 10*3/uL (130-400); RED CELL DISTRI WIDTH 13.9 % (0-14.5); WHITE BLOOD COUNT 7.8 10*3/uL (4.8-10.8)
[2019-09-03 08:00] VITALS: BP 130/88
[2019-09-03 12:00] VITALS: BP 106/67
[2019-09-03 16:00] VITALS: BP 122/67
[2019-09-03] MEDS ORDERED: CIPROFLOXACIN250 MG PO (17:40)
[2019-09-03] MEDS ORDERED: AVPAK AZITHROM250 MG PO (17:40)
[2019-09-03] MEDS ORDERED: NATURE'S BLEND F1 MG PO (17:40)
[2019-09-03] MEDS ORDERED: TAMSULOSIN HCL0.4 MG PO (17:40)
[2019-09-03] MEDS ORDERED: EC NAPROSYN500 MG PO (17:40)
[2019-09-03] MEDS ORDERED: PHARMASSURE V500 MCG PO (17:40)
== END 2019-09-03 18:30 | disposition home or self-care (01) | DRG 871 ==
LOC: ED 20:56 → EDHOLD 09-01 00:31 → 4E 09-01 00:31
PROVIDERS: Family Medicine; Internal Medicine; Physician Assistant; ADMIT Internal Medicine
DX: A41.9 Sepsis, unspecified organism (principal); J18.0 Bronchopneumonia, unspecified organism; N30.01 Acute cystitis with hematuria; E44.0 Moderate protein-calorie malnutrition; R00.0 Tachycardia, unspecified; K21.9 Gastro-esophageal reflux disease without esophagitis; I10 Essential (primary) hypertension; E66.01 Morbid (severe) obesity due to excess calories; R79.89 Other specified abnormal findings of blood chemistry; R09.1 Pleurisy; R16.1 Splenomegaly, not elsewhere classified; Z88.6 Allergy status to analgesic agent; Z88.0 Allergy status to penicillin; Z88.8 Allergy status to other drugs, medicaments and biological substances; Z91.030 Bee allergy status; Z79.899 Other long term (current) drug therapy; Z90.49 Acquired absence of other specified parts of digestive tract; Z98.51 Tubal ligation status; Z82.49 Family history of ischemic heart disease and other diseases of the circulatory system; Z80.8 Family history of malignant neoplasm of other organs or systems; Z87.440 Personal history of urinary (tract) infections; Z98.891 History of uterine scar from previous surgery; Z68.39 Body mass index [BMI] 39.0-39.9, adult

== ENCOUNTER → 2019-09-17 | Outpatient (CLI) | payer OTHER ==
[~2019-09-17] MED LIST changes: +AVPAK AZITHROM250 MG PO; +CIPROFLOXACIN250 MG PO; +DITROPAN XL5 MG PO; +EC NAPROSYN500 MG PO; +NATURE'S BLEND F1 MG PO; +PHARMASSURE V500 MCG PO; +TAMSULOSIN HCL0.4 MG PO
[2019-09-17 16:10] LABS: BILIRUBIN NEGATIVE (NEGATIVE); BLOOD TRACE-INTACT (NEGATIVE); CLARITY CLEAR (CLEAR); COLOR YELLOW (YELLOW); GLUCOSE NEGATIVE (NEGATIVE); KETONE NEGATIVE (NEGATIVE); LEUKO ESTERASE NEGATIVE (NEGATIVE); NITRITE NEGATIVE (NEGATIVE); SPECIFIC GRAVITY <= 1.005 (1.005-1.030); UROBILINOGEN 0.2 E.U./dl (0.2-1.0)
[2019-09-17 16:17] LABS: BACTERIA 2+; RBC 0-2 rbc/hpf (0-2)
== END | disposition home or self-care (01) ==
LOC: RESCLI 03:45
PROVIDERS: Internal Medicine Nephrology
DX: R78.81 Bacteremia (principal); N32.81 Overactive bladder; E61.1 Iron deficiency; R07.9 Chest pain, unspecified; K21.9 Gastro-esophageal reflux disease without esophagitis; E55.9 Vitamin D deficiency, unspecified; K59.00 Constipation, unspecified; I10 Essential (primary) hypertension; E66.01 Morbid (severe) obesity due to excess calories; Z68.41 Body mass index [BMI] 40.0-44.9, adult; Z79.899 Other long term (current) drug therapy; Z90.49 Acquired absence of other specified parts of digestive tract; Z90.710 Acquired absence of both cervix and uterus; Z88.8 Allergy status to other drugs, medicaments and biological substances; Z88.0 Allergy status to penicillin; Z88.1 Allergy status to other antibiotic agents; Z88.5 Allergy status to narcotic agent

== ENCOUNTER → 2020-03-11 | Outpatient (CLI) | payer OTHER ==
[2020-03-11 15:48] LABS: BASO % 0.6 % (0.0-1.0); EOS # 0.2 10*3/uL (0.0-0.4); EOS % 2.8 % (1.0-4.0); HEMATOCRIT 40.1 % (37.0-47.0); LYMPH % 28.4 % (27.0-41.0); MEAN CELL VOLUME 87.7 fl (81.0-99.0); MEAN CORPUSCULAR HGB 28.4 pg (27.0-31.0); MEAN CORPUSCULAR HGB CONC 32.4 g/dl (33.0-37.0); MEAN PLATELET VOLUME 8.6 fl (9.6-12.3); MONO # 0.5 10*3/uL (0.1-1.0); MONO % 6.6 % (3.0-9.0); NEUT # 4.4 10*3/uL (2.3-7.9); NEUT % 61.2 % (47.0-73.0); PLATELET COUNT AUTOMATED 395 10*3/uL (130-400); RED BLOOD COUNT 4.57 10*6/uL (4.10-5.10); RED CELL DISTRI WIDTH 13.6 % (0-14.5); WHITE BLOOD COUNT 7.2 10*3/uL (4.8-10.8)
[2020-03-11 16:03] LABS: ALBUMIN 3.9 gm/dl (3.1-4.5); BUN 11 mg/dl (7-24); CHLORIDE 104 mmol/L (98-107); CHOLESTEROL 232 mg/dL (<200); CREATININE 0.78 mg/dL (0.55-1.02); HDL CHOLESTEROL 54 mg/dl (40-60); LDL CHOLESTEROL 118 mg/dL (9-159); POTASSIUM 3.6 mmol/L (3.5-5.1); SGOT/AST 22 IU/L (3-35); SGPT/ALT 38 U/L (12-78); SODIUM 139 mmol/L (136-145); TRIGLYCERIDES 302 mg/dl (<150); VLDL CHOLESTEROL 60 mg/dL (6-40)
[2020-03-11 16:04] LABS: ALKALINE PHOSPHATASE 70 U/L (45-117); TOTAL PROTEIN 7.4 gm/dL (6.4-8.2)
[2020-03-11 16:31] LABS: VITAMIN D, 25-HYDROXY 26.2 ng/mL (30-100)
[2020-03-12 15:04] LABS: RUBEOLA AB IGG 24.7 AU/mL (Immune >16.4)
== END | disposition home or self-care (01) ==
LOC: RESCLI 00:37
PROVIDERS: Student in an Organized Health Care Education/Training Program
DX: Z00.00 Encounter for general adult medical examination without abnormal findings (principal); D50.9 Iron deficiency anemia, unspecified; E53.8 Deficiency of other specified B group vitamins

== ENCOUNTER 2020-08-01 10:25 | Emergency (ER) | payer OTHER ==
[~2020-08-01] VITALS: Wt 84.8 kg
[2020-08-01 10:29] VITALS: BP 119/52
== END 2020-08-01 13:17 | disposition home or self-care (01) ==
LOC: ED 10:25
DX: S90.31XA Contusion of right foot, initial encounter (principal); Z91.030 Bee allergy status; Z88.0 Allergy status to penicillin; Z88.8 Allergy status to other drugs, medicaments and biological substances; Z79.899 Other long term (current) drug therapy; X58.XXXA Exposure to other specified factors, initial encounter; Y93.89 Activity, other specified; Y92.89 Other specified places as the place of occurrence of the external cause; Y99.8 Other external cause status

== ENCOUNTER → 2020-08-27 | Outpatient (CLI) | payer OTHER ==
[2020-08-27 10:51] LABS: BILIRUBIN Negative (Negative); BLOOD Trace-Lysed (Negative); CLARITY Cloudy (Clear); COLOR Yellow (Yellow); GLUCOSE Negative (Negative); KETONE Negative (Negative); LEUKO ESTERASE 2+ (Negative); NITRITE Negative (Negative); PH 6.5 (4.5-8.0); UROBILINOGEN 0.2 E.U./dl (0.0-1.0)
[2020-08-27 12:56] LABS: BACTERIA 2+; EPITHELIAL CELLS 31-40; WBC 51-100 wbc/hpf (0-5)
== END | disposition home or self-care (01) ==
LOC: RESCLI 01:39
PROVIDERS: Student in an Organized Health Care Education/Training Program; ATTEND Student in an Organized Health Care Education/Training Program
DX: M79.671 Pain in right foot (principal); K21.9 Gastro-esophageal reflux disease without esophagitis; K58.2 Mixed irritable bowel syndrome; N95.2 Postmenopausal atrophic vaginitis; N32.81 Overactive bladder; G58.9 Mononeuropathy, unspecified; E55.9 Vitamin D deficiency, unspecified; E53.8 Deficiency of other specified B group vitamins; D50.9 Iron deficiency anemia, unspecified; N39.0 Urinary tract infection, site not specified; E66.01 Morbid (severe) obesity due to excess calories; E78.5 Hyperlipidemia, unspecified; Z00.00 Encounter for general adult medical examination without abnormal findings; Z71.3 Dietary counseling and surveillance; Z79.899 Other long term (current) drug therapy; Z98.51 Tubal ligation status; Z90.49 Acquired absence of other specified parts of digestive tract; Z98.890 Other specified postprocedural states

== ENCOUNTER → 2020-09-29 | Outpatient (CLI) | payer SELFPAY ==
[2020-09-29 16:05] LABS: BILIRUBIN Negative (Negative); BLOOD 1+ (Negative); CLARITY Cloudy (Clear); COLOR Yellow (Yellow); GLUCOSE Negative (Negative); KETONE Negative (Negative); LEUKO ESTERASE 1+ (Negative); NITRITE Negative (Negative); SPECIFIC GRAVITY 1.025 (1.001-1.030); UROBILINOGEN 0.2 E.U./dl (0.0-1.0)
[2020-09-29 16:30] LABS: WBC 0-2 wbc/hpf (0-5)
[2020-09-29 16:31] LABS: BACTERIA 1+; RBC 0-2 rbc/hpf (0-2)
== END | disposition home or self-care (01) ==
LOC: LAB 15:50
PROVIDERS: ATTEND Student in an Organized Health Care Education/Training Program
DX: R39.9 Unspecified symptoms and signs involving the genitourinary system (principal)

== ENCOUNTER → 2020-09-29 | Outpatient (CLI) | payer SELFPAY | END | disposition home or self-care (01) | LOC: COVID19 16:08 | PROVIDERS: ATTEND Internal Medicine | DX: Z20.828 Contact with and (suspected) exposure to other viral communicable diseases (principal) ==

== ENCOUNTER → 2020-10-01 | Outpatient (CLI) | payer SELFPAY | LOC: RESCLI | PROVIDERS: ATTEND Student in an Organized Health Care Education/Training Program | DX: N39.0 Urinary tract infection, site not specified (principal); K58.2 Mixed irritable bowel syndrome; N95.2 Postmenopausal atrophic vaginitis; N32.81 Overactive bladder; G58.9 Mononeuropathy, unspecified; E55.9 Vitamin D deficiency, unspecified; D50.9 Iron deficiency anemia, unspecified; K21.9 Gastro-esophageal reflux disease without esophagitis; M79.671 Pain in right foot; Z79.899 Other long term (current) drug therapy; Z88.0 Allergy status to penicillin; Z88.8 Allergy status to other drugs, medicaments and biological substances ==

== ENCOUNTER → 2020-10-24 | Outpatient (CLI) | payer SELFPAY | END | disposition home or self-care (01) | LOC: RESCLI 00:20 | PROVIDERS: ATTEND Internal Medicine | DX: I10 Essential (primary) hypertension (principal); N32.81 Overactive bladder; B37.9 Candidiasis, unspecified; K59.00 Constipation, unspecified; E55.9 Vitamin D deficiency, unspecified; K21.9 Gastro-esophageal reflux disease without esophagitis; E66.01 Morbid (severe) obesity due to excess calories; K58.2 Mixed irritable bowel syndrome; N95.2 Postmenopausal atrophic vaginitis; D50.9 Iron deficiency anemia, unspecified; E78.5 Hyperlipidemia, unspecified; G58.9 Mononeuropathy, unspecified; E53.8 Deficiency of other specified B group vitamins; Z79.899 Other long term (current) drug therapy; Z88.8 Allergy status to other drugs, medicaments and biological substances ==

== ENCOUNTER 2020-12-08 04:33 | Emergency (ER) | payer SELFPAY ==
[~2020-12-08] VITALS: Ht 144.7 cm; Wt 89.4 kg
[2020-12-08 04:38] VITALS: BP 113/44
[2020-12-08 04:56] LABS: BASO % 0.4 % (0.0-1.0); EOS # 0.4 10*3/uL (0.0-0.4); EOS % 5.2 % (1.0-4.0); HEMATOCRIT 41.6 % (37.0-47.0); LYMPH # 2.3 10*3/uL (1.3-4.4); LYMPH % 32.9 % (27.0-41.0); MEAN CELL VOLUME 88.7 fl (81.0-99.0); MEAN CORPUSCULAR HGB 28.4 pg (27.0-31.0); MONO # 0.5 10*3/uL (0.1-1.0); MONO % 7.2 % (3.0-9.0); NEUT # 3.8 10*3/uL (2.3-7.9); NEUT % 53.9 % (47.0-73.0); PLATELET COUNT AUTOMATED 388 10*3/uL (130-400); RED BLOOD COUNT 4.69 10*6/uL (4.10-5.10); RED CELL DISTRI WIDTH 13.5 % (0-14.5); WHITE BLOOD COUNT 7.1 10*3/uL (4.8-10.8)
[2020-12-08 05:09] LABS: BUN 10 mg/dl (7-24); CHLORIDE 106 mmol/L (98-107); CREATININE 0.86 mg/dL (0.55-1.02); POTASSIUM 3.6 mmol/L (3.5-5.1); SODIUM 141 mmol/L (136-145)
[2020-12-08 06:31] LABS: BILIRUBIN Negative (Negative); BLOOD Trace-Lysed (Negative); CLARITY Turbid (Clear); COLOR Yellow (Yellow); GLUCOSE Negative (Negative); KETONE Trace (Negative); LEUKO ESTERASE 2+ (Negative); NITRITE Negative (Negative); SPECIFIC GRAVITY 1.025 (1.001-1.030)
[2020-12-08 06:42] LABS: BACTERIA 2+; EPITHELIAL CELLS TNTC
[2020-12-08] MEDS ORDERED: CIPRO500 MG PO (06:46)
== END 2020-12-08 07:12 | disposition home or self-care (01) ==
LOC: ED 04:33
PROVIDERS: Internal Medicine
DX: R55 Syncope and collapse (principal); N39.0 Urinary tract infection, site not specified; I10 Essential (primary) hypertension; J45.909 Unspecified asthma, uncomplicated; K21.9 Gastro-esophageal reflux disease without esophagitis; Z91.030 Bee allergy status; Z88.0 Allergy status to penicillin; Z88.5 Allergy status to narcotic agent; Z88.8 Allergy status to other drugs, medicaments and biological substances; Z79.899 Other long term (current) drug therapy; Z98.51 Tubal ligation status; Z90.49 Acquired absence of other specified parts of digestive tract; Z98.890 Other specified postprocedural states

== ENCOUNTER 2020-12-10 22:01 | Emergency (ER) | payer SELFPAY ==
[~2020-12-10] VITALS: Ht 144.7 cm; Wt 89.4 kg
[2020-12-10 22:48] LABS: BILIRUBIN Negative (Negative); BLOOD Trace-Lysed (Negative); CLARITY Cloudy (Clear); COLOR Yellow (Yellow); GLUCOSE Negative (Negative); KETONE Negative (Negative); LEUKO ESTERASE 2+ (Negative); NITRITE Negative (Negative)
[2020-12-10 22:54] LABS: BASO % 0.3 % (0.0-1.0); EOS # 0.3 10*3/uL (0.0-0.4); EOS % 3.5 % (1.0-4.0); HEMATOCRIT 40.7 % (37.0-47.0); LYMPH # 2.5 10*3/uL (1.3-4.4); LYMPH % 26.6 % (27.0-41.0); MEAN CELL VOLUME 87.3 fl (81.0-99.0); MEAN CORPUSCULAR HGB 27.9 pg (27.0-31.0); MEAN CORPUSCULAR HGB CONC 31.9 g/dl (33.0-37.0); MONO # 0.7 10*3/uL (0.1-1.0); MONO % 7.1 % (3.0-9.0); NEUT # 5.9 10*3/uL (2.3-7.9); NEUT % 62.2 % (47.0-73.0); PLATELET COUNT AUTOMATED 407 10*3/uL (130-400); RED BLOOD COUNT 4.66 10*6/uL (4.10-5.10); RED CELL DISTRI WIDTH 13.4 % (0-14.5); WHITE BLOOD COUNT 9.5 10*3/uL (4.8-10.8)
[2020-12-10 23:19] LABS: ALBUMIN 3.5 gm/dl (3.1-4.5); ALKALINE PHOSPHATASE 60 U/L (45-117); BUN 11 mg/dl (7-24); CHLORIDE 109 mmol/L (98-107); LIPASE 75 U/L (73-393); POTASSIUM 3.4 mmol/L (3.5-5.1); SGOT/AST 6 IU/L (3-35); SGPT/ALT 20 U/L (12-78); SODIUM 142 mmol/L (136-145)
[2020-12-10 23:24] LABS: TROPONIN I < 0.015 ng/ml (<0.045)
[2020-12-10 23:29] LABS: BACTERIA 1+; EPITHELIAL CELLS 16-20
[2020-12-11 03:21] VITALS: BP 128/61
== END 2020-12-11 06:15 | disposition home or self-care (01) ==
LOC: ED 22:01
PROVIDERS: Student in an Organized Health Care Education/Training Program
DX: K57.30 Diverticulosis of large intestine without perforation or abscess without bleeding (principal); K21.9 Gastro-esophageal reflux disease without esophagitis; I10 Essential (primary) hypertension; E66.01 Morbid (severe) obesity due to excess calories; J45.909 Unspecified asthma, uncomplicated; Z91.030 Bee allergy status; Z88.0 Allergy status to penicillin; Z88.5 Allergy status to narcotic agent; Z79.899 Other long term (current) drug therapy; Z98.51 Tubal ligation status; Z90.49 Acquired absence of other specified parts of digestive tract; Z98.890 Other specified postprocedural states

== ENCOUNTER → 2020-12-19 | Outpatient (CLI) | payer SELFPAY | END | disposition home or self-care (01) | LOC: RESCLI 00:50 | PROVIDERS: ATTEND Internal Medicine | DX: R10.2 Pelvic and perineal pain (principal); K57.92 Diverticulitis of intestine, part unspecified, without perforation or abscess without bleeding; I95.1 Orthostatic hypotension; N39.0 Urinary tract infection, site not specified; Z79.899 Other long term (current) drug therapy; Z90.49 Acquired absence of other specified parts of digestive tract; Z90.710 Acquired absence of both cervix and uterus; Z98.890 Other specified postprocedural states; Z98.51 Tubal ligation status ==

== ENCOUNTER → 2021-01-12 | Outpatient (CLI) | payer SELFPAY | END | disposition home or self-care (01) | LOC: MRI 02:13 | PROVIDERS: ATTEND Podiatrist | DX: S93.331A Other subluxation of right foot, initial encounter (principal); M19.071 Primary osteoarthritis, right ankle and foot; M85.471 Solitary bone cyst, right ankle and foot; M71.571 Other bursitis, not elsewhere classified, right ankle and foot; M25.474 Effusion, right foot; M65.871 Other synovitis and tenosynovitis, right ankle and foot; M72.2 Plantar fascial fibromatosis; X58.XXXA Exposure to other specified factors, initial encounter; Y93.89 Activity, other specified; Y92.89 Other specified places as the place of occurrence of the external cause; Y99.8 Other external cause status ==

== ENCOUNTER → 2021-03-03 | Outpatient (CLI) | payer SELFPAY ==
[2021-03-03 14:19] LABS: BILIRUBIN Negative (Negative); BLOOD Negative (Negative); CLARITY Clear (Clear); COLOR Yellow (Yellow); GLUCOSE Negative (Negative); KETONE Negative (Negative); LEUKO ESTERASE Negative (Negative); NITRITE Negative (Negative)
[2021-03-03 14:39] LABS: BACTERIA 3+; EPITHELIAL CELLS 21-30
== END | disposition home or self-care (01) ==
LOC: RESCLI 00:16
PROVIDERS: Student in an Organized Health Care Education/Training Program; ATTEND Internal Medicine
DX: K21.9 Gastro-esophageal reflux disease without esophagitis (principal); N92.0 Excessive and frequent menstruation with regular cycle; N94.6 Dysmenorrhea, unspecified; K59.00 Constipation, unspecified; E55.9 Vitamin D deficiency, unspecified; K29.50 Unspecified chronic gastritis without bleeding; F41.9 Anxiety disorder, unspecified; G47.00 Insomnia, unspecified; E66.01 Morbid (severe) obesity due to excess calories; N32.81 Overactive bladder; K58.2 Mixed irritable bowel syndrome; D50.9 Iron deficiency anemia, unspecified; E78.5 Hyperlipidemia, unspecified; I10 Essential (primary) hypertension; Z79.899 Other long term (current) drug therapy; Z90.49 Acquired absence of other specified parts of digestive tract; Z90.710 Acquired absence of both cervix and uterus; Z98.890 Other specified postprocedural states; Z88.0 Allergy status to penicillin; Z88.8 Allergy status to other drugs, medicaments and biological substances

== ENCOUNTER → 2022-02-26 | Outpatient (CLI) | payer SELFPAY | END | disposition home or self-care (01) | LOC: RESCLI 16:17 | PROVIDERS: ATTEND Internal Medicine | DX: Z00.01 Encounter for general adult medical examination with abnormal findings (principal); K21.9 Gastro-esophageal reflux disease without esophagitis; N32.81 Overactive bladder; K58.2 Mixed irritable bowel syndrome; N95.2 Postmenopausal atrophic vaginitis; R11.0 Nausea; M62.838 Other muscle spasm; Z88.0 Allergy status to penicillin; Z90.49 Acquired absence of other specified parts of digestive tract; Z79.899 Other long term (current) drug therapy ==

== ENCOUNTER → 2022-05-18 | Outpatient (CLI) | payer SELFPAY | END | disposition home or self-care (01) | LOC: RESCLI 13:16 | PROVIDERS: ATTEND Internal Medicine | DX: F32.9 Major depressive disorder, single episode, unspecified (principal); E66.01 Morbid (severe) obesity due to excess calories; K58.2 Mixed irritable bowel syndrome; F41.9 Anxiety disorder, unspecified; K21.9 Gastro-esophageal reflux disease without esophagitis; N32.81 Overactive bladder; Z79.899 Other long term (current) drug therapy; Z88.8 Allergy status to other drugs, medicaments and biological substances; Z88.0 Allergy status to penicillin ==

== ENCOUNTER → 2022-05-25 | Outpatient (CLI) | payer SELFPAY | END | disposition home or self-care (01) | LOC: RESCLI 05-22 17:23 | PROVIDERS: ATTEND Internal Medicine | DX: F32.9 Major depressive disorder, single episode, unspecified (principal); K58.2 Mixed irritable bowel syndrome; K21.9 Gastro-esophageal reflux disease without esophagitis; N32.81 Overactive bladder; M62.838 Other muscle spasm; R11.0 Nausea; Z79.899 Other long term (current) drug therapy; Z88.0 Allergy status to penicillin; Z88.8 Allergy status to other drugs, medicaments and biological substances ==

== ENCOUNTER → 2022-06-22 | Outpatient (CLI) | payer SELFPAY | END | disposition home or self-care (01) | LOC: RESCLI 08:25 | PROVIDERS: ATTEND Internal Medicine | DX: F32.9 Major depressive disorder, single episode, unspecified (principal); F51.02 Adjustment insomnia; N32.81 Overactive bladder; K58.2 Mixed irritable bowel syndrome; K21.9 Gastro-esophageal reflux disease without esophagitis; R11.0 Nausea; M62.838 Other muscle spasm; Z79.899 Other long term (current) drug therapy; Z88.0 Allergy status to penicillin; Z88.8 Allergy status to other drugs, medicaments and biological substances; Z90.49 Acquired absence of other specified parts of digestive tract ==

== ENCOUNTER → 2022-07-20 | Outpatient (CLI) | payer SELFPAY | END | disposition home or self-care (01) | LOC: RESCLI 02:00 | PROVIDERS: ATTEND Internal Medicine | DX: F32.9 Major depressive disorder, single episode, unspecified (principal); F41.9 Anxiety disorder, unspecified; G47.00 Insomnia, unspecified; M62.838 Other muscle spasm; K58.2 Mixed irritable bowel syndrome; K21.9 Gastro-esophageal reflux disease without esophagitis; N32.81 Overactive bladder; R11.0 Nausea; Z88.0 Allergy status to penicillin; Z88.8 Allergy status to other drugs, medicaments and biological substances; Z82.49 Family history of ischemic heart disease and other diseases of the circulatory system; Z90.49 Acquired absence of other specified parts of digestive tract; Z98.890 Other specified postprocedural states; Z79.899 Other long term (current) drug therapy ==

== ENCOUNTER → 2022-08-04 | Outpatient (CLI) | payer SELFPAY | LOC: LAB 11:07 | PROVIDERS: ATTEND Internal Medicine | DX: J02.9 Acute pharyngitis, unspecified (principal) ==

== ENCOUNTER → 2022-08-16 | Outpatient (CLI) | payer SELFPAY ==
[2022-08-16 13:15] LABS: BASO % 0.3 % (0.0-1.0); EOS # 0.2 10*3/uL (0.0-0.4); EOS % 3.3 % (1.0-4.0); HEMATOCRIT 39.3 % (37.0-47.0); LYMPH # 1.4 10*3/uL (1.3-4.4); LYMPH % 19.5 % (27.0-41.0); MEAN CELL VOLUME 86.2 fl (81.0-99.0); MEAN CORPUSCULAR HGB 27.9 pg (27.0-31.0); MEAN CORPUSCULAR HGB CONC 32.3 g/dl (33.0-37.0); MEAN PLATELET VOLUME 8.9 fl (9.6-12.3); MONO # 0.5 10*3/uL (0.1-1.0); MONO % 6.8 % (3.0-9.0); NEUT % 69.5 % (47.0-73.0); PLATELET COUNT AUTOMATED 349 10*3/uL (130-400); RED BLOOD COUNT 4.56 10*6/uL (4.10-5.10); RED CELL DISTRI WIDTH 14.2 % (0-14.5); WHITE BLOOD COUNT 7.2 10*3/uL (4.8-10.8)
[2022-08-16 13:37] LABS: ALKALINE PHOSPHATASE 72 U/L (45-117); BUN 16 mg/dl (7-24); CHLORIDE 105 mmol/L (98-107); CREATININE 0.66 mg/dL (0.55-1.02); POTASSIUM 3.8 mmol/L (3.5-5.1); SGOT/AST 15 IU/L (3-35); SGPT/ALT 24 U/L (12-78); SODIUM 138 mmol/L (136-145); TOTAL PROTEIN 7.3 gm/dL (6.4-8.2)
== END | disposition home or self-care (01) ==
LOC: RESCLI 11:36
PROVIDERS: Internal Medicine; ATTEND Internal Medicine
DX: Z23 Encounter for immunization (principal); M19.012 Primary osteoarthritis, left shoulder; M48.14 Ankylosing hyperostosis [Forestier], thoracic region; M77.8 Other enthesopathies, not elsewhere classified; M25.712 Osteophyte, left shoulder; M62.838 Other muscle spasm; F32.9 Major depressive disorder, single episode, unspecified; N32.81 Overactive bladder; J06.9 Acute upper respiratory infection, unspecified; G44.209 Tension-type headache, unspecified, not intractable; K58.2 Mixed irritable bowel syndrome; R07.9 Chest pain, unspecified; K21.9 Gastro-esophageal reflux disease without esophagitis; F41.9 Anxiety disorder, unspecified; F32.A Depression, unspecified; K76.0 Fatty (change of) liver, not elsewhere classified; E66.01 Morbid (severe) obesity due to excess calories; Z88.0 Allergy status to penicillin; Z88.5 Allergy status to narcotic agent; Z88.8 Allergy status to other drugs, medicaments and biological substances; Z91.030 Bee allergy status; Z82.49 Family history of ischemic heart disease and other diseases of the circulatory system; Z90.49 Acquired absence of other specified parts of digestive tract; Z98.890 Other specified postprocedural states; Z79.899 Other long term (current) drug therapy

== ENCOUNTER → 2022-08-17 | Outpatient (CLI) | payer SELFPAY | END | disposition home or self-care (01) | LOC: LAB 09:48 | PROVIDERS: ATTEND Internal Medicine | DX: J06.9 Acute upper respiratory infection, unspecified (principal); R19.7 Diarrhea, unspecified ==

== ENCOUNTER → 2022-08-31 | Outpatient (CLI) | payer SELFPAY ==
[2022-08-31 15:12] LABS: BILIRUBIN Negative (Negative); BLOOD Negative (Negative); CLARITY Clear (Clear); COLOR Yellow (Yellow); GLUCOSE Negative (Negative); KETONE Negative (Negative); LEUKO ESTERASE Negative (Negative); NITRITE Negative (Negative); SPECIFIC GRAVITY 1.015 (1.001-1.030); UROBILINOGEN 0.2 E.U./dl (0.0-1.0)
[2022-08-31 15:48] LABS: BACTERIA 1+; WBC 0-2 wbc/hpf (0-5)
== END | disposition home or self-care (01) ==
LOC: RESCLI 13:24
PROVIDERS: Family Medicine; ATTEND Internal Medicine
DX: M48.02 Spinal stenosis, cervical region (principal); M25.512 Pain in left shoulder; M79.2 Neuralgia and neuritis, unspecified; M62.838 Other muscle spasm; R30.0 Dysuria; N32.81 Overactive bladder; J02.9 Acute pharyngitis, unspecified; F32.9 Major depressive disorder, single episode, unspecified; K21.9 Gastro-esophageal reflux disease without esophagitis; R11.0 Nausea; K58.2 Mixed irritable bowel syndrome; G44.209 Tension-type headache, unspecified, not intractable; E63.9 Nutritional deficiency, unspecified; Z82.49 Family history of ischemic heart disease and other diseases of the circulatory system; Z72.89 Other problems related to lifestyle; Z88.0 Allergy status to penicillin; Z88.5 Allergy status to narcotic agent; Z88.8 Allergy status to other drugs, medicaments and biological substances; Z79.899 Other long term (current) drug therapy

== ENCOUNTER → 2023-01-18 | Outpatient (CLI) | payer SELFPAY | END | disposition home or self-care (01) | LOC: RESCLI 01:19 | PROVIDERS: ATTEND Family Medicine | DX: Z12.4 Encounter for screening for malignant neoplasm of cervix (principal); Z12.11 Encounter for screening for malignant neoplasm of colon; M79.671 Pain in right foot; M79.602 Pain in left arm; K57.30 Diverticulosis of large intestine without perforation or abscess without bleeding; K21.9 Gastro-esophageal reflux disease without esophagitis; K76.0 Fatty (change of) liver, not elsewhere classified; Z79.899 Other long term (current) drug therapy; Z88.0 Allergy status to penicillin; Z88.8 Allergy status to other drugs, medicaments and biological substances; Z90.49 Acquired absence of other specified parts of digestive tract ==

== ENCOUNTER → 2023-03-29 | Outpatient (CLI) | payer SELFPAY | END | disposition home or self-care (01) | LOC: RESCLI 14:31 | PROVIDERS: ATTEND Student in an Organized Health Care Education/Training Program | DX: A18.4 Tuberculosis of skin and subcutaneous tissue (principal); N32.81 Overactive bladder; K21.9 Gastro-esophageal reflux disease without esophagitis; K58.2 Mixed irritable bowel syndrome; M62.838 Other muscle spasm; E63.9 Nutritional deficiency, unspecified; R11.0 Nausea; F32.9 Major depressive disorder, single episode, unspecified; M79.602 Pain in left arm; Z88.0 Allergy status to penicillin; Z88.8 Allergy status to other drugs, medicaments and biological substances; Z88.5 Allergy status to narcotic agent; Z82.49 Family history of ischemic heart disease and other diseases of the circulatory system; Z98.890 Other specified postprocedural states; Z79.899 Other long term (current) drug therapy ==

== ENCOUNTER 2023-05-12 16:17 | Emergency (ER) | payer SELFPAY ==
[~2023-05-12] VITALS: Ht 144.7 cm; Wt 89.8 kg
[2023-05-12 16:31] VITALS: BP 156/67
[2023-05-12 16:57] LABS: BASO % 0.3 % (0.0-1.0); EOS # 0.2 10*3/uL (0.0-0.4); EOS % 3.9 % (1.0-4.0); HEMATOCRIT 38.4 % (37.0-47.0); LYMPH # 1.9 10*3/uL (1.3-4.4); LYMPH % 30.6 % (27.0-41.0); MEAN CELL VOLUME 85.7 fl (81.0-99.0); MEAN CORPUSCULAR HGB 27.7 pg (27.0-31.0); MEAN CORPUSCULAR HGB CONC 32.3 g/dl (33.0-37.0); MEAN PLATELET VOLUME 8.7 fl (9.6-12.3); MONO # 0.5 10*3/uL (0.1-1.0); MONO % 8.5 % (3.0-9.0); NEUT # 3.5 10*3/uL (2.3-7.9); NEUT % 56.2 % (47.0-73.0); PLATELET COUNT AUTOMATED 364 10*3/uL (130-400); RED BLOOD COUNT 4.48 10*6/uL (4.10-5.10); RED CELL DISTRI WIDTH 14.3 % (0-14.5); WHITE BLOOD COUNT 6.2 10*3/uL (4.8-10.8)
[2023-05-12 17:13] LABS: ACT PARTIAL THROMBO TIME 27.9 SECONDS (20.0-32.1)
[2023-05-12 17:19] LABS: ALKALINE PHOSPHATASE 64 U/L (46-116); BUN 13 mg/dl (9-23); CHLORIDE 105 mmol/L (98-107); LIPASE 30 U/L (12-53); POTASSIUM 3.8 mmol/L (3.4-5.1); SGPT/ALT 22 U/L (10-49); TOTAL PROTEIN 6.6 gm/dL (6.0-8.0)
[2023-05-12 17:38] LABS: BILIRUBIN Negative (Negative); BLOOD Trace-Lysed (Negative); CLARITY Cloudy (Clear); COLOR Yellow (Yellow); GLUCOSE Negative (Negative); KETONE Trace (Negative); LEUKO ESTERASE Negative (Negative); NITRITE Negative (Negative); UROBILINOGEN 0.2 E.U./dl (0.0-1.0)
[2023-05-12 17:46] LABS: BACTERIA 1+; RBC 0-2 rbc/hpf (0-2); WBC 0-2 wbc/hpf (0-5)
[2023-05-12] MEDS ORDERED: CIPRO500 MG PO (18:53)
[2023-05-12] MEDS ORDERED: REGLAN10 M1 PO (18:53)
== END 2023-05-12 19:05 | disposition home or self-care (01) ==
LOC: ED 16:17
PROVIDERS: Internal Medicine
DX: R51.9 Headache, unspecified (principal); M79.605 Pain in left leg; I10 Essential (primary) hypertension; J45.909 Unspecified asthma, uncomplicated; K21.9 Gastro-esophageal reflux disease without esophagitis; Z91.030 Bee allergy status; Z88.0 Allergy status to penicillin; Z88.5 Allergy status to narcotic agent; Z88.8 Allergy status to other drugs, medicaments and biological substances; Z90.49 Acquired absence of other specified parts of digestive tract; Z98.890 Other specified postprocedural states; Z98.51 Tubal ligation status

== ENCOUNTER → 2023-06-16 | Outpatient (CLI) | payer SELFPAY ==
[~2023-06-16] MED LIST changes: +REGLAN10 M1 PO
== END | disposition home or self-care (01) ==
LOC: US 14:42
PROVIDERS: ATTEND Nurse Practitioner Family
DX: R10.2 Pelvic and perineal pain (principal); R30.0 Dysuria

== ENCOUNTER 2023-10-16 19:23 | Emergency (ER) | payer SELFPAY ==
[~2023-10-16] VITALS: Ht 144.7 cm; Wt 84.8 kg
[2023-10-16 19:39] VITALS: BP 124/54
[2023-10-16 20:55] LABS: BASO % 0.4 % (0.0-1.0); EOS # 0.1 10*3/uL (0.0-0.4); EOS % 1.8 % (1.0-4.0); HEMATOCRIT 44.4 % (37.0-47.0); LYMPH # 1.3 10*3/uL (1.3-4.4); LYMPH % 17.5 % (27.0-41.0); MEAN CELL VOLUME 86.2 fl (81.0-99.0); MEAN CORPUSCULAR HGB 26.8 pg (27.0-31.0); MEAN CORPUSCULAR HGB CONC 31.1 g/dl (33.0-37.0); MONO # 0.6 10*3/uL (0.1-1.0); MONO % 8.5 % (3.0-9.0); NEUT # 5.2 10*3/uL (2.3-7.9); NEUT % 71.5 % (47.0-73.0); PLATELET COUNT AUTOMATED 368 10*3/uL (130-400); RED BLOOD COUNT 5.15 10*6/uL (4.10-5.10); RED CELL DISTRI WIDTH 14.5 % (0-14.5); WHITE BLOOD COUNT 7.3 10*3/uL (4.8-10.8)
[2023-10-16 21:06] LABS: ACT PARTIAL THROMBO TIME 29.3 SECONDS (20.0-32.1)
[2023-10-16 21:09] LABS: BILIRUBIN Negative (Negative); BLOOD Negative (Negative); CLARITY Cloudy (Clear); COLOR Dark Yellow (Yellow); GLUCOSE Negative (Negative); KETONE 1+ (Negative); LEUKO ESTERASE 1+ (Negative); NITRITE Negative (Negative); PH 5.5 (4.5-8.0); SPECIFIC GRAVITY >= 1.030 (1.001-1.030)
[2023-10-16 21:14] LABS: ALKALINE PHOSPHATASE 77 U/L (46-116); BUN 17 mg/dl (9-23); CHLORIDE 107 mmol/L (98-107); LIPASE 32 U/L (12-53); POTASSIUM 3.1 mmol/L (3.4-5.1); SGPT/ALT 22 U/L (5-49); TOTAL PROTEIN 7.2 gm/dL (6.0-8.0)
[2023-10-16 21:24] LABS: BACTERIA 3+; CALCIUM OXALATE CRYSTALS 1+; EPITHELIAL CELLS 16-20
[2023-10-16] MEDS ORDERED: CIPRO500 MG PO (22:10)
[2023-10-16] MEDS ORDERED: ONDANSETRON4 MG SL (22:11)
== END 2023-10-16 23:29 | disposition home or self-care (01) ==
LOC: ED 19:23
PROVIDERS: Internal Medicine
DX: N39.0 Urinary tract infection, site not specified (principal); Z20.822 Contact with and (suspected) exposure to COVID-19; R11.2 Nausea with vomiting, unspecified; R19.7 Diarrhea, unspecified; Z91.030 Bee allergy status; Z88.0 Allergy status to penicillin; Z88.5 Allergy status to narcotic agent; Z88.8 Allergy status to other drugs, medicaments and biological substances; Z88.6 Allergy status to analgesic agent; Z79.899 Other long term (current) drug therapy; Z79.2 Long term (current) use of antibiotics; Z98.51 Tubal ligation status; Z90.49 Acquired absence of other specified parts of digestive tract; Z98.890 Other specified postprocedural states

== ENCOUNTER → 2023-11-03 | Outpatient (CLI) | payer SELFPAY ==
[~2023-11-03] MED LIST changes: +ONDANSETRON4 MG SL
[2023-11-03 18:25] LABS: BASO % 0.5 % (0.0-1.0); BILIRUBIN Negative (Negative); BLOOD Negative (Negative); CLARITY Clear (Clear); COLOR Yellow (Yellow); EOS # 0.2 10*3/uL (0.0-0.4); EOS % 3.2 % (1.0-4.0); GLUCOSE Negative (Negative); KETONE Negative (Negative); LEUKO ESTERASE Trace (Negative); LYMPH # 1.9 10*3/uL (1.3-4.4); LYMPH % 31.3 % (27.0-41.0); MEAN CELL VOLUME 86.8 fl (81.0-99.0); MEAN CORPUSCULAR HGB 26.9 pg (27.0-31.0); MEAN PLATELET VOLUME 8.8 fl (9.6-12.3); MONO # 0.5 10*3/uL (0.1-1.0); MONO % 8.4 % (3.0-9.0); NEUT # 3.3 10*3/uL (2.3-7.9); NEUT % 56.3 % (47.0-73.0); NITRITE Negative (Negative); PH 6.5 (4.5-8.0); PLATELET COUNT AUTOMATED 374 10*3/uL (130-400); RED BLOOD COUNT 4.61 10*6/uL (4.10-5.10); RED CELL DISTRI WIDTH 14.3 % (0-14.5); SPECIFIC GRAVITY <= 1.005 (1.001-1.030); UROBILINOGEN 0.2 E.U./dl (0.0-1.0); WHITE BLOOD COUNT 5.9 10*3/uL (4.8-10.8)
[2023-11-03 18:42] LABS: BACTERIA 2+
[2023-11-03 18:50] LABS: ALKALINE PHOSPHATASE 74 U/L (46-116); BUN 12 mg/dl (9-23); CHLORIDE 105 mmol/L (98-107); POTASSIUM 3.8 mmol/L (3.4-5.1); SGPT/ALT 15 U/L (5-49); TOTAL PROTEIN 7.3 gm/dL (6.0-8.0); VITAMIN D, 25-HYDROXY 35.1 ng/mL (30-100)
== END | disposition home or self-care (01) ==
LOC: LAB 16:03 → RESCLI 16:03
PROVIDERS: Family Medicine; ATTEND Student in an Organized Health Care Education/Training Program
DX: N30.90 Cystitis, unspecified without hematuria (principal); M25.78 Osteophyte, vertebrae; R53.83 Other fatigue

== ENCOUNTER 2024-02-24 10:14 | Emergency (ER) | payer SELFPAY ==
[~2024-02-24] VITALS: Ht 144.7 cm; Wt 89.8 kg
[2024-02-24] MEDS ORDERED: MORPHINE Sulfate 2 MG/ML SYR IV ONE (10:25)
[2024-02-24] MEDS ORDERED: Ketorolac Tromethamine 15 MG/ML VIAL IV ONE (10:25)
[2024-02-24] MEDS ORDERED: SODIUM CHLORIDE 0.9% 1,000 ML IV ONE (10:25)
[2024-02-24] MEDS ORDERED: Ondansetron Hydrochloride 4 MG/2 ML VIAL IV ONE (10:30)
[2024-02-24 10:49] LABS: BASO # 0.1 10*3/uL (0.0-0.1); BASO % 0.7 % (0.0-1.0); EOS # 0.5 10*3/uL (0.0-0.4); EOS % 5.2 % (1.0-4.0); HEMATOCRIT 43.2 % (37.0-47.0); LYMPH # 1.7 10*3/uL (1.3-4.4); LYMPH % 19.4 % (27.0-41.0); MEAN CELL VOLUME 87.8 fl (81.0-99.0); MEAN CORPUSCULAR HGB 26.8 pg (27.0-31.0); MEAN CORPUSCULAR HGB CONC 30.6 g/dl (33.0-37.0); MONO # 0.6 10*3/uL (0.1-1.0); MONO % 6.7 % (3.0-9.0); NEUT # 5.8 10*3/uL (2.3-7.9); NEUT % 67.5 % (47.0-73.0); PLATELET COUNT AUTOMATED 388 10*3/uL (130-400); RED BLOOD COUNT 4.92 10*6/uL (4.10-5.10); RED CELL DISTRI WIDTH 14.1 % (0-14.5); WHITE BLOOD COUNT 8.6 10*3/uL (4.8-10.8)
[2024-02-24 11:09] LABS: ALKALINE PHOSPHATASE 83 U/L (46-116); BUN 9 mg/dl (9-23); CHLORIDE 105 mmol/L (98-107); LIPASE 38 U/L (12-53); POTASSIUM 4.4 mmol/L (3.4-5.1); SGPT/ALT 13 U/L (5-49); TOTAL PROTEIN 7.3 gm/dL (6.0-8.0)
[2024-02-24] MEDS ORDERED: IOHEXOL 300 MG/ML 100 ML VIAL IV ONE (11:10)
[2024-02-24] MEDS ORDERED: METRONIDAZOLE 500 MG TAB PO ONE (13:50)
[2024-02-24] MEDS ORDERED: Ciprofloxacin Hydrochloride 500 MG TAB PO ONE (13:50)
[2024-02-24] MEDS ORDERED: HYDROmorphONE Hydrochloride 1 MG/ML SYR IV ONE (13:55)
[2024-02-24] MEDS ORDERED: HYDROCODONE-AC1 EAC1 PO (14:00)
[2024-02-24] MEDS ORDERED: CIPRO500 MG PO (14:00)
[2024-02-24] MEDS ORDERED: METRONIDAZOLE500 M1 PO (14:00)
[2024-02-24 14:55] VITALS: BP 102/70
[2024-02-24 15:18] LABS: BILIRUBIN Negative (Negative); BLOOD Negative (Negative); CLARITY Clear (Clear); COLOR Yellow (Yellow); GLUCOSE Negative (Negative); KETONE Negative (Negative); LEUKO ESTERASE Negative (Negative); NITRITE Negative (Negative); SPECIFIC GRAVITY >= 1.030 (1.001-1.030)
[2024-02-24 15:33] LABS: WBC 0-2 wbc/hpf (0-5)
== END 2024-02-24 14:57 | disposition home or self-care (01) ==
LOC: ED 10:14
PROVIDERS: Emergency Medicine
DX: S09.8XXA Other specified injuries of head, initial encounter (principal); I10 Essential (primary) hypertension; J45.909 Unspecified asthma, uncomplicated; K21.9 Gastro-esophageal reflux disease without esophagitis; R11.0 Nausea; R10.32 Left lower quadrant pain; Z91.030 Bee allergy status; Z88.0 Allergy status to penicillin; Z88.5 Allergy status to narcotic agent; Z88.8 Allergy status to other drugs, medicaments and biological substances; Z90.49 Acquired absence of other specified parts of digestive tract; Z98.890 Other specified postprocedural states; Z98.51 Tubal ligation status; W19.XXXA Unspecified fall, initial encounter; Y93.89 Activity, other specified; Y92.89 Other specified places as the place of occurrence of the external cause; Y99.8 Other external cause status

== ENCOUNTER 2024-06-06 18:31 | Inpatient (IN) | payer SELFPAY ==
[~2024-06-06] VITALS: Ht 144.8 cm; Wt 91.7 kg
[~2024-06-06 18:31] MED LIST changes: +HYDROCODONE-AC1 EAC1 PO; +METRONIDAZOLE500 M1 PO
[2024-06-06 18:57] VITALS: BP 163/64
[2024-06-06 18:58] VITALS: BP 163/64
[2024-06-06 19:15] LABS: BASO # 0.1 10*3/uL (0.0-0.1); BASO % 0.6 % (0.0-1.0); EOS # 0.3 10*3/uL (0.0-0.4); EOS % 3.8 % (1.0-4.0); HEMATOCRIT 42.7 % (37.0-47.0); LYMPH # 2.4 10*3/uL (1.3-4.4); LYMPH % 31.1 % (27.0-41.0); MEAN CELL VOLUME 86.6 fl (81.0-99.0); MEAN CORPUSCULAR HGB 26.8 pg (27.0-31.0); MEAN CORPUSCULAR HGB CONC 30.9 g/dl (33.0-37.0); MEAN PLATELET VOLUME 8.5 fl (9.6-12.3); MONO # 0.6 10*3/uL (0.1-1.0); NEUT # 4.4 10*3/uL (2.3-7.9); NEUT % 56.1 % (47.0-73.0); PLATELET COUNT AUTOMATED 438 10*3/uL (130-400); RED BLOOD COUNT 4.93 10*6/uL (4.10-5.10); RED CELL DISTRI WIDTH 14.2 % (0-14.5); WHITE BLOOD COUNT 7.8 10*3/uL (4.8-10.8)
[2024-06-06 19:28] LABS: ACT PARTIAL THROMBO TIME 26.9 SECONDS (20.0-32.1)
[2024-06-06 19:37] LABS: ALKALINE PHOSPHATASE 79 U/L (46-116); BUN 11 mg/dl (9-23); CHLORIDE 106 mmol/L (98-107); POTASSIUM 3.7 mmol/L (3.4-5.1); SGPT/ALT 16 U/L (5-49); TOTAL PROTEIN 7.3 gm/dL (6.0-8.0)
[2024-06-06] MEDS ORDERED: Ondansetron Hydrochloride 4 MG/2 ML VIAL IV ONE (20:40)
[2024-06-06] MEDS ORDERED: MORPHINE Sulfate 2 MG/ML SYR IV ONE (20:40)
[2024-06-06] MEDS ORDERED: Ketorolac Tromethamine 15 MG/ML VIAL IV ONE (20:55)
[2024-06-06] MEDS ORDERED: Ketorolac Tromethamine 15 MG/ML VIAL IM ONE (20:55)
[2024-06-06] MEDS ORDERED: BISACODYL 5 MG TAB PO PRN (21:15)
[2024-06-06] MEDS ORDERED: BISACODYL 10 MG SUPP R PRN (21:15)
[2024-06-06] MEDS ORDERED: Magnesium Hydroxide 30 ML UDC PO PRN (21:15)
[2024-06-06] MEDS ORDERED: ACETAMINOPHEN 325 MG TAB PO PRN (21:15)
[2024-06-06] MEDS ORDERED: MORPHINE Sulfate 2 MG/ML SYR IV PRN (21:15)
[2024-06-06] MEDS ORDERED: ACETAMINOPHEN 650 MG SUPP R PRN (21:15)
[2024-06-06] MEDS ORDERED: TEMAZEPAM 15 MG CAP PO PRN (21:15)
[2024-06-06] MEDS ORDERED: Cyclobenzaprine Hydrochlorid 10 MG TAB PO PRN (21:50)
[2024-06-06] MEDS ORDERED: ATORVASTATIN CALCIUM 80 MG TAB PO SCH (21:55)
[2024-06-06] MEDS ORDERED: Oxybutynin Chloride 5 MG TAB PO SCH (22:00)
[2024-06-06] MEDS ORDERED: Metoprolol Tartrate 25 MG TAB PO SCH (22:00)
[2024-06-06] MEDS ORDERED: Technetium Tc 99M Tetrofosmi 0.23 MG KIT IJ SCH (22:10)
[2024-06-07] VITALS (11 sets, daily range): BP systolic 84–118; BP diastolic 43–73
[2024-06-07] MEDS ORDERED: OMEPRAZOLE 20 MG CAP PO SCH (06:00)
[2024-06-07 06:45] LABS: BASO % 0.7 % (0.0-1.0); EOS # 0.2 10*3/uL (0.0-0.4); HEMATOCRIT 39.6 % (37.0-47.0); LYMPH # 2.3 10*3/uL (1.3-4.4); LYMPH % 38.8 % (27.0-41.0); MEAN CELL VOLUME 86.8 fl (81.0-99.0); MEAN CORPUSCULAR HGB 26.8 pg (27.0-31.0); MEAN CORPUSCULAR HGB CONC 30.8 g/dl (33.0-37.0); MEAN PLATELET VOLUME 8.8 fl (9.6-12.3); MONO # 0.5 10*3/uL (0.1-1.0); MONO % 7.9 % (3.0-9.0); NEUT # 2.9 10*3/uL (2.3-7.9); NEUT % 48.3 % (47.0-73.0); PLATELET COUNT AUTOMATED 369 10*3/uL (130-400); RED BLOOD COUNT 4.56 10*6/uL (4.10-5.10); RED CELL DISTRI WIDTH 14.2 % (0-14.5)
[2024-06-07] MEDS ORDERED: Regadenoson 0.4 MG/5 ML SYR IV ONE (06:46)
[2024-06-07 07:19] LABS: ALKALINE PHOSPHATASE 73 U/L (46-116); BUN 12 mg/dl (9-23); CHLORIDE 108 mmol/L (98-107); CHOLESTEROL 229 mg/dL (<200); FREE T4 1.05 ng/dl (0.89-1.76); LDL CHOLESTEROL 129 mg/dL (9-159); POTASSIUM 3.7 mmol/L (3.4-5.1); SGPT/ALT 14 U/L (5-49); TOTAL PROTEIN 6.3 gm/dL (6.0-8.0); TRIGLYCERIDES 260 mg/dl (<150)
[2024-06-07] MEDS ORDERED: Lubiprostone 8 MCG CAP PO SCH (10:00)
[2024-06-07] MEDS ORDERED: ASPIRIN 325 MG TAB PO SCH (10:00)
[2024-06-07] MEDS ORDERED: Enoxaparin Sodium 40 MG/0.4 ML SYR SC SCH (10:00)
[2024-06-07] MEDS ORDERED: Cyclobenzaprine Hydrochlorid 10 MG TAB PO SCH (10:00)
[2024-06-07] MEDS ORDERED: PERFLUTREN PROTEIN-A MICROSPHR 3 ML VIAL IV ONE (11:45)
[2024-06-07] MEDS ORDERED: SODIUM CHLORIDE 0.9% 1,000 ML IV ONE (16:20)
[2024-06-07] MEDS ORDERED: Ketorolac Tromethamine 30 MG/ML VIAL IV SCH (17:00)
[2024-06-07] MEDS ORDERED: SODIUM CHLORIDE 0.9% 100 ML BAG IV ONE (17:05)
[2024-06-07] MEDS ORDERED: IOHEXOL 350 MG/ML 100 ML VIAL IV ONE (17:05)
[2024-06-08 01:00] VITALS: BP 138/77
[2024-06-08 06:38] LABS: BILIRUBIN Negative (Negative); BLOOD Negative (Negative); CLARITY Clear (Clear); COLOR Yellow (Yellow); GLUCOSE Negative (Negative); KETONE Negative (Negative); LEUKO ESTERASE Negative (Negative); NITRITE Negative (Negative); SPECIFIC GRAVITY >= 1.030 (1.001-1.030); UROBILINOGEN 0.2 E.U./dl (0.0-1.0)
[2024-06-08 06:46] LABS: BASO % 0.5 % (0.0-1.0); EOS # 0.3 10*3/uL (0.0-0.4); EOS % 4.1 % (1.0-4.0); HEMATOCRIT 36.7 % (37.0-47.0); LYMPH # 2.1 10*3/uL (1.3-4.4); LYMPH % 33.5 % (27.0-41.0); MEAN CORPUSCULAR HGB 26.8 pg (27.0-31.0); MEAN CORPUSCULAR HGB CONC 30.8 g/dl (33.0-37.0); MONO # 0.5 10*3/uL (0.1-1.0); MONO % 7.3 % (3.0-9.0); NEUT # 3.3 10*3/uL (2.3-7.9); NEUT % 53.9 % (47.0-73.0); PLATELET COUNT AUTOMATED 326 10*3/uL (130-400); RED BLOOD COUNT 4.22 10*6/uL (4.10-5.10); RED CELL DISTRI WIDTH 14.3 % (0-14.5); WHITE BLOOD COUNT 6.2 10*3/uL (4.8-10.8)
[2024-06-08 07:05] LABS: BUN 12 mg/dl (9-23); CHLORIDE 108 mmol/L (98-107)
[2024-06-08 08:00] VITALS: BP 121/70
[2024-06-08] MEDS ORDERED: methylPREDNISolone sod succ 125 MG VIAL IV ONE (08:50)
[2024-06-08] MEDS ORDERED: Ketorolac Tromethamine 30 MG/ML VIAL IV ONE (08:50)
[2024-06-08] MEDS ORDERED: Cyclobenzaprine Hydrochlorid 10 MG TAB PO SCH (10:00)
[2024-06-08] MEDS ORDERED: ATORVASTATIN CA80 M1 PO (13:01)
[2024-06-08] MEDS ORDERED: PREDNISONE10 MG PO (13:01)
== END 2024-06-08 15:00 | disposition home or self-care (01) | DRG 206 ==
LOC: ED 18:31 → EDHOLD 20:39 → ED 20:42 → EDHOLD 21:16 → 4E 06-08 00:59
PROVIDERS: Nurse Practitioner; Student in an Organized Health Care Education/Training Program; ADMIT Internal Medicine; ATTEND Internal Medicine
PROC: 4A02XM4 Measurement of Cardiac Total Activity, External Approach (ICD-10-PCS; principal; 2024-06-07)
PROC: 3E073KZ Introduction of Other Diagnostic Substance into Coronary Artery, Percutaneous Approach (ICD-10-PCS; 2024-06-07)
DX: M94.0 Chondrocostal junction syndrome [Tietze] (principal); Z68.41 Body mass index [BMI] 40.0-44.9, adult; E66.01 Morbid (severe) obesity due to excess calories; D75.839 Thrombocytosis, unspecified; M54.12 Radiculopathy, cervical region; E78.5 Hyperlipidemia, unspecified; S29.011A Strain of muscle and tendon of front wall of thorax, initial encounter; Z88.0 Allergy status to penicillin; Z88.8 Allergy status to other drugs, medicaments and biological substances; Z88.6 Allergy status to analgesic agent; Z91.030 Bee allergy status; Z98.51 Tubal ligation status; Z90.49 Acquired absence of other specified parts of digestive tract; Z98.891 History of uterine scar from previous surgery; Z82.49 Family history of ischemic heart disease and other diseases of the circulatory system; X58.XXXA Exposure to other specified factors, initial encounter; Y93.89 Activity, other specified; Y92.89 Other specified places as the place of occurrence of the external cause; Y99.8 Other external cause status

== ENCOUNTER → 2024-06-18 | Outpatient (CLI) | payer SELFPAY ==
[~2024-06-18] MED LIST changes: +ATORVASTATIN CA80 M1 PO; +PREDNISONE10 MG PO
== END | disposition home or self-care (01) ==
LOC: RESCLI 11:02
PROVIDERS: ATTEND Student in an Organized Health Care Education/Training Program
DX: M25.512 Pain in left shoulder (principal); G89.29 Other chronic pain; K21.9 Gastro-esophageal reflux disease without esophagitis; E66.9 Obesity, unspecified; F10.90 Alcohol use, unspecified, uncomplicated; F41.9 Anxiety disorder, unspecified; F32.9 Major depressive disorder, single episode, unspecified; Z88.0 Allergy status to penicillin; Z88.5 Allergy status to narcotic agent; Z88.8 Allergy status to other drugs, medicaments and biological substances; Z90.49 Acquired absence of other specified parts of digestive tract; Z98.890 Other specified postprocedural states; Z79.899 Other long term (current) drug therapy; Y90.9 Presence of alcohol in blood, level not specified

== ENCOUNTER 2025-04-22 19:15 | Emergency (ER) | payer SELFPAY ==
[~2025-04-22] VITALS: Ht 144.7 cm; Wt 88.5 kg
[2025-04-22 21:22] VITALS: BP 148/56
[2025-04-22] MEDS ORDERED: Ondansetron Hydrochloride 4 MG/2 ML VIAL IV ONE (22:45)
[2025-04-22] MEDS ORDERED: Metoclopramide Hydrochloride 10 MG/2 ML VIAL IV ONE (22:45)
[2025-04-22] MEDS ORDERED: SODIUM CHLORIDE 0.9% 500 ML IV ONE (22:45)
[2025-04-22] MEDS ORDERED: diphenhydrAMINE hydrochloride 50 MG/ML VIAL IV ONE (22:45)
[2025-04-23] MEDS ORDERED: FIORICET 50-301 EACH PO (01:00)
[2025-04-23] MEDS ORDERED: Ondansetron4 MG PO (01:00)
== END 2025-04-23 01:28 | disposition home or self-care (01) ==
LOC: ED 19:15
DX: S06.0X0A Concussion without loss of consciousness, initial encounter (principal); G43.909 Migraine, unspecified, not intractable, without status migrainosus; J45.909 Unspecified asthma, uncomplicated; K21.9 Gastro-esophageal reflux disease without esophagitis; Z79.899 Other long term (current) drug therapy; Z88.0 Allergy status to penicillin; Z88.1 Allergy status to other antibiotic agents; Z88.5 Allergy status to narcotic agent; Z88.6 Allergy status to analgesic agent; Z91.030 Bee allergy status; Z90.49 Acquired absence of other specified parts of digestive tract; Z98.51 Tubal ligation status; Z98.890 Other specified postprocedural states; W07.XXXA Fall from chair, initial encounter; Y93.89 Activity, other specified; Y92.89 Other specified places as the place of occurrence of the external cause; Y99.8 Other external cause status

== ENCOUNTER 2025-05-07 11:54 | Inpatient (IN) | payer SELFPAY ==
[~2025-05-07] VITALS: Ht 144.7 cm; Wt 86.8 kg
[~2025-05-07 11:54] MED LIST changes: +FIORICET 50-301 EACH PO; +Ondansetron4 MG PO
[2025-05-07] MEDS ORDERED: diphenhydrAMINE hydrochloride 50 MG/ML VIAL IV ONE (12:00)
[2025-05-07] MEDS ORDERED: Metoclopramide Hydrochloride 10 MG/2 ML VIAL IV ONE (12:00)
[2025-05-07] MEDS ORDERED: SODIUM CHLORIDE 0.9% 1,000 ML IV ONE (12:00)
[2025-05-07 12:07] VITALS: BP 146/59
[2025-05-07 12:14] LABS: BASO # 0.0 10*3/uL (0.0-0.1); BASO % 0.3 % (0.0-1.0); EOS # 0.4 10*3/uL (0.0-0.4); EOS % 6.2 % (1.0-4.0); MEAN CELL VOLUME 85.2 fl (81.0-99.0); MEAN CORPUSCULAR HGB 27.3 pg (27.0-31.0); MEAN PLATELET VOLUME 8.9 fl (9.6-12.3); MONO # 0.4 10*3/uL (0.1-1.0); MONO % 6.5 % (3.0-9.0); NEUT # 3.4 10*3/uL (2.3-7.9); NEUT % 57.0 % (47.0-73.0); NUCLEATED RED BLOOD CELL 0.0 % (0.0-0.0); NUCLEATED RED BLOOD CELL 0.0 10*3/uL (0.0-0.0); PLATELET COUNT AUTOMATED 353 10*3/uL (130-400); RED CELL DISTRI WIDTH 14.4 % (0-14.5)
[2025-05-07 12:28] LABS: BUN 11 mg/dl (9-23)
[2025-05-07] MEDS ORDERED: ACETAMINOPHEN 325 MG TAB PO PRN (12:30)
[2025-05-07] MEDS ORDERED: Ondansetron Hydrochloride 4 MG/2 ML VIAL IV PRN (12:30)
[2025-05-07] MEDS ORDERED: BISACODYL 5 MG TAB PO PRN (12:30)
[2025-05-07] MEDS ORDERED: TEMAZEPAM 15 MG CAP PO PRN (12:30)
[2025-05-07 15:20] VITALS: BP 143/72
[2025-05-07] MEDS ORDERED: diazePAM 5 MG TAB PO SCH (15:25)
[2025-05-07] MEDS ORDERED: predniSONE 20 MG TAB PO ONE (15:40)
[2025-05-07 16:00] VITALS: BP 146/70
[2025-05-07 20:00] VITALS: BP 143/65
[2025-05-08] VITALS: BP 122/84
[2025-05-08 05:55] LABS: BASO # 0.0 10*3/uL (0.0-0.1); BASO % 0.1 % (0.0-1.0); EOS # 0.0 10*3/uL (0.0-0.4); EOS % 0.0 % (1.0-4.0); MEAN CELL VOLUME 83.9 fl (81.0-99.0); MEAN CORPUSCULAR HGB 27.5 pg (27.0-31.0); MEAN PLATELET VOLUME 9.2 fl (9.6-12.3); MONO # 0.1 10*3/uL (0.1-1.0); MONO % 1.8 % (3.0-9.0); NEUT # 6.8 10*3/uL (2.3-7.9); NEUT % 88.4 % (47.0-73.0); NUCLEATED RED BLOOD CELL 0.0 % (0.0-0.0); NUCLEATED RED BLOOD CELL 0.0 10*3/uL (0.0-0.0); PLATELET COUNT AUTOMATED 314 10*3/uL (130-400); RED CELL DISTRI WIDTH 14.3 % (0-14.5)
[2025-05-08] MEDS ORDERED: OMEPRAZOLE 20 MG CAP PO SCH (07:00)
[2025-05-08 07:42] LABS: BUN 13 mg/dl (9-23); FREE T4 1.24 ng/dl (0.89-1.76); LDL CHOLESTEROL 153 mg/dL (9-159); SGPT/ALT 19 U/L (5-49)
[2025-05-08 08:00] VITALS: BP 126/67
[2025-05-08 08:13] LABS: VITAMIN D, 25-HYDROXY 34.2 ng/mL (30-100)
[2025-05-08] MEDS ORDERED: predniSONE 10 MG TAB PO SCH (10:00)
[2025-05-08] MEDS ORDERED: Folic Acid/Vitamin B Complex 1 TAB TAB PO SCH (10:00)
[2025-05-08 12:00] VITALS: BP 118/76
[2025-05-08 16:00] VITALS: BP 110/65
[2025-05-08] MEDS ORDERED: IOHEXOL 350 MG/ML 100 ML VIAL IV ONE (18:35)
[2025-05-08] MEDS ORDERED: SODIUM CHLORIDE 0.9% 100 ML BAG IV ONE (18:35)
[2025-05-08 20:00] VITALS: BP 122/56
[2025-05-09] VITALS: BP 108/51
[2025-05-09 06:35] LABS: BASO # 0.0 10*3/uL (0.0-0.1); BASO % 0.1 % (0.0-1.0); EOS # 0.0 10*3/uL (0.0-0.4); EOS % 0.2 % (1.0-4.0); MEAN CELL VOLUME 85.2 fl (81.0-99.0); MEAN CORPUSCULAR HGB 26.7 pg (27.0-31.0); MEAN PLATELET VOLUME 9.1 fl (9.6-12.3); MONO # 0.6 10*3/uL (0.1-1.0); MONO % 5.3 % (3.0-9.0); NEUT # 9.8 10*3/uL (2.3-7.9); NEUT % 82.4 % (47.0-73.0); NUCLEATED RED BLOOD CELL 0.0 % (0.0-0.0); NUCLEATED RED BLOOD CELL 0.0 10*3/uL (0.0-0.0); PLATELET COUNT AUTOMATED 304 10*3/uL (130-400); RED CELL DISTRI WIDTH 14.8 % (0-14.5)
[2025-05-09 07:07] LABS: BUN 12 mg/dl (9-23)
[2025-05-09 08:00] VITALS: BP 120/53
[2025-05-09] MEDS ORDERED: DIAZEPAM5 MG PO (11:01)
[2025-05-09] MEDS ORDERED: PREDNISONE10 MG PO (11:01)
== END 2025-05-09 11:40 | disposition home or self-care (01) | DRG 103 ==
LOC: ED 11:54 → EDHOLD 12:13 → ICCU 12:13 → EDHOLD 12:30 → ICCU 14:41 → 5E 05-08 13:26
PROVIDERS: Emergency Medicine; Student in an Organized Health Care Education/Training Program; ADMIT Internal Medicine; ATTEND Internal Medicine
DX: G43.919 Migraine, unspecified, intractable, without status migrainosus (principal); Z68.41 Body mass index [BMI] 40.0-44.9, adult; G44.321 Chronic post-traumatic headache, intractable; I10 Essential (primary) hypertension; E66.01 Morbid (severe) obesity due to excess calories; M48.02 Spinal stenosis, cervical region; K21.9 Gastro-esophageal reflux disease without esophagitis; R73.9 Hyperglycemia, unspecified; Z88.0 Allergy status to penicillin; Z88.8 Allergy status to other drugs, medicaments and biological substances; Z91.09 Other allergy status, other than to drugs and biological substances; Z79.899 Other long term (current) drug therapy; Z79.2 Long term (current) use of antibiotics; Z90.49 Acquired absence of other specified parts of digestive tract; Z98.891 History of uterine scar from previous surgery; Z82.49 Family history of ischemic heart disease and other diseases of the circulatory system; Z80.52 Family history of malignant neoplasm of bladder

== ENCOUNTER → 2025-06-19 | Outpatient (CLI) | payer SELFPAY ==
[~2025-06-19] MED LIST changes: +DIAZEPAM5 MG PO
== END | disposition home or self-care (01) ==
LOC: RESCLI 07:14
PROVIDERS: ATTEND Internal Medicine
DX: G44.209 Tension-type headache, unspecified, not intractable (principal); N32.81 Overactive bladder; K21.9 Gastro-esophageal reflux disease without esophagitis; K59.00 Constipation, unspecified; Z98.890 Other specified postprocedural states; Z90.49 Acquired absence of other specified parts of digestive tract; Z79.899 Other long term (current) drug therapy